=== PATIENT | female | born 1975 | race Caucasian/White ===

== ENCOUNTER 2018-02-14 20:02 | Inpatient (IN) ==
[2018-02-14 22:40] LABS: ABG Base Excess 0 mEq/L (-2 to 3); ABG HCO3 28 mEq/L (21-27); ABG Oxygen Saturation 99 % (95-98); ABG PCO2 63 mmHg (35-45); ABG PH 7.25 pH Units (7.32-7.45); ABG PO2 141 mmHg (85-104); ABG TCO2 30 mEq/L (20-26); Blood Gas Modality ASSIST CONTROL; Blood Gas PEEP 5 cm H2O; Blood Gas Respiration Rate 14; Blood Gas VT 400 cc
[2018-02-14] MEDS ORDERED: Artificial Tears SOLN 15 ML BOTTLE BOTH EYES PRN (22:47)
[2018-02-14] MEDS ORDERED: Naloxone 0.4 MG/ML INJ IVP PRN (22:47)
[2018-02-14] MEDS ORDERED: D5% in Water 1,000 ML IVC PRN (22:58)
[2018-02-14] MEDS ORDERED: Dextrose Gel 15 GM/37.5 ML TUBE PO PRN ×2 (22:58)
[2018-02-14] MEDS ORDERED: *HR* Dextrose 50 % in Water (Syg) 50 ML SYRINGE IVP PRN (22:58)
[2018-02-14 23:36] LABS: Basophils % 0.1 %; Hematocrit 34.4 % (35.3-44.9); Hemoglobin 11.6 g/dL (11.5-15.4); Immature Granulocytes % 0.4 % (0-4); Lymphocytes # 0.4 K/mcL (0.6-4.6); Lymphocytes % 3.4 %; Mean Corpuscular HGB Conc 33.7 g/dL (31.6-35.5); Mean Corpuscular Hemoglobin 29.9 pg (28.0-33.3); Mean Corpuscular Volume 88.7 fL (83.0-100.0); Mean Platelet Volume 10.2 fL (9.4-12.4); Monocytes # 0.2 K/mcL (0.0-1.3); Monocytes % 1.3 %; Neutrophils # 11.9 K/mcL (1.6-8.9); Platelet Count 148 K/mcL (140-400); Red Blood Count 3.88 M/mcL (3.82-4.97); Red Cell Distribution Width 12.8 % (11.5-14.5); Segmented Neutrophils % 94.8 %
[2018-02-14] MEDS: Insulin LISPRO 300 UNITS/3 ML VIAL SQ SCH (23:36)
--- NOTE | 2018-02-14 23:39 | Internal Med History&Physical ---
<PritiSilverio chung - Last Filed: 02/14/18 23:29> Date of Encounter: 02/14/18 Time of Encounter: 23:29 Internal Medicine - H&P: HPI Chief complaint: Lip swelling Admitted From: Emergency Dept Plans for Post Hospital Care: Transfer Other History of present illness: Ms. Owen is a 42 year old female with history of IV drug abuse, possible hepatitis C who presents with swelling of the lips and tongue. Patient is currently intubated sedated so history is obtained from the rehabilitation facility employee and from the medical record. Apparently several days ago the patient developed a "pimple" in her right naris and was picking at it. Yesterday she developed swelling on the left side of her face adjacent to her lips. Apparently there was no erythema or induration noted. This persisted today so the patient was taken to the urgent care where she was diagnosed with impetigo and prescribed amoxicillin. The patient took a dose of amoxicillin and up early her swelling of her lips and tongue rapidly progressed. She then presented to the emergency department where she was intubated for airway protection. Per the report there was minimal edema noted during intubation. Patient arrived to the intensive care unit in stable condition. In discussion with the rehabilitation facility employee the patient has been undergoing treatment for heroin addiction and has been staying at a facility for the past 43 days. She has been doing well with her treatment. She said several passes has been tested for drugs of abuse many times and has remained clean. Per the employee the patient has a history of hepatitis C but does not have a history of HIV. Patient started Lamictal and risperidone approximately a week ago. She takes Vivatrol injections to help with her addiction, it is unknown when her last injection was. Her only other medication is omeprazole. Past Med Surg Social Fam HX - Past Medical History Medical history: no medical history, hepatitis Additional medical history: Hep C, restless leg syndrome, chronic back pain Psychiatric history: anxiety, bipolar - Past Surgical History Surgical History: non-contributory - Social History Smoking Status: Never smoker Smokeless Tobacco Status: No Alcohol use: none Drug use: marijuana, IV Drug Use, prescription drug abuse Internal Medicine - H&P: Meds Amoxicillin 500 mg PO BID 10 Days #20 tablet 02/14/18 [Rx] Omeprazole [PriLOSEC] 40 mg PO DAILY 02/14/18 [History] lamoTRIgine [Lamictal] 25 mg PO BID 02/14/18 [History] risperiDONE [Risperdal] 1 mg PO DAILY 02/14/18 [History] 3 Allergy/AdvReac Type Severity Reaction Status Date / Time No Known Allergies Allergy Verified 02/14/18 21:33 ROS unobtainable: due to endotracheal tube All Systems PM: A 10-system review of systems was performed and is negative for pertinent findings except as documented above in the HPI. - Constitutional Vitals: Temp Pulse Resp BP Pulse Ox 98.4 F 114 14 114/98 97 02/14/18 22:27 02/14/18 22:27 02/14/18 22:27 02/14/18 22:27 02/14/18 22:27 Exam: Intubated and sedated. No acute distress. - Head Head exam: Present: atraumatic, normal inspection, normocephalic - Eye Eye exam: Present: EOMI, PERRL. Absent: periorbital swelling - ENT ENT exam: Present: mucous membranes moist Additional comments: Upper lip and tongue swelling noted. Small papule noted in the right naris with mild erythema. No active drainage. No other erythema or induration or discrete areas of fluctuance noted. Poor dentition is noted. - Neck Neck exam general surgery: Present: full ROM, supple, trachea midline. Absent: nuchal rigidity - Respiratory Respiratory exam: Present: wheezes (Mild bibasilar end expiratory wheezes). Absent: rales, respiratory distress, rhonchi, tachypnea - Cardiovascular Cardiovascular exam: Present: RRR. Absent: diastolic murmur, irregular rhythm, systolic murmur, tachycardia - GI/Abdominal GI/Abdominal exam: Present: normal bowel sounds, soft. Absent: distended, tenderness - Extremities Exam Extremities exam: Present: warm. Absent: pedal edema, tenderness - Neurological Exam Neurological exam: Absent: no focal deficits Additional comments: Patient moves all 4 extremities spontaneously. No focal deficits. - Psychiatric Additional comments: Unable to assess as patient is currently sedated. - Skin Skin exam: Absent: petechiae, rash, urticaria Additional comments: Small papule noted to right naris as discussed above. Internal Med - H&P Results - ABG Interpretation ABG results: 02/14/18 22:35 ABG pH 7.25 L ABG pCO2 63 H ABG pO2 141 H ABG HCO3 28 H ABG Total CO2 30 H ABG O2 Saturation 99 H ABG Base Excess 0 - Impressions ITS Impressions KUB X-Ray 02/14/18 22:44 IMPRESSION: Esophagogastric tube tip terminates over the expected location of the pylorus/1st portion of the duodenum. D/ / Alexis Morillo / Alexis Morillo Interpreting Provider: Alexis Morillo - Assessment and plan (1) Angioedema Current Visit: No Status: Acute Assessment and plan: Etiology unclear although possibly related to amoxicillin. Patient has no known drug allergies and apparently has taken amoxicillin in the past but we are unable to confirm this with the patient. Lamictal and risperidone are also possible causes but appear to be less likely at this time given the timeline. Patient continues to have perioral swelling and tongue swelling but minimal edema was noted during intubation. Patient currently intubated for airway protection. Continue sedation with propofol, we will plan to switch to Precedex and evaluate for spontaneous awake trial/spontaneous breathing trial in the morning. We will complete workup with ESR, CRP, C4. We will treat with methylprednisolone 40 mg IV every 8, Benadryl 50 mg every 6, famotidine 20 mg every 12. Qualifiers: Encounter type: initial encounter Qualified Code(s): T78.3XXA - Angioneurotic edema, initial encounter (2) Hepatitis C Current Visit: Yes Status: Suspected Assessment and plan: Her rehabilitation facility operations manager patient has a hepatitis C. We have no objective testing of this. Will order hepatitis panel. Hepatic function function panel pending as well. Qualifiers: Viral hepatitis chronicity: unspecified Hepatic coma status: without hepatic coma Qualified Code(s): B19.20 - Unspecified viral hepatitis C without hepatic coma (3) History of intravenous drug abuse Current Visit: Yes Status: Acute (4) GERD (gastroesophageal reflux disease) Current Visit: Yes Status: Acute Assessment and plan: Patient takes omeprazole home. We will use famotidine for GI prophylaxis as well as treatment of angioedema as discussed above. Qualifiers: Esophagitis presence: esophagitis presence not specified Qualified Code(s) : K21.9 - Gastro-esophageal reflux disease without esophagitis (5) DVT prophylaxis Current Visit: Yes Status: Acute Assessment and plan: Lovenox 40 mg subcutaneous daily (6) Psychiatric disorder Current Visit: Yes Status: Acute Assessment and plan: Unknown diagnosis although patient takes Lamictal and rispiradone. We will attempt to obtain records. Hold these medications for now as they could be contributing the patient's angioedema as discussed above. - Time Spent With Patient Total time spent is greater than 50% in coordination of care (as documented) at patient's floor/unit and/or counseling patient: <Radames Echavarriatony - Last Filed: 02/15/18 00:01> Date of Encounter: 02/15/18 Internal Medicine - H&P: HPI History of present illness: Ms. Owen is a 42 year old female All Systems PM: A 10-system review of systems was performed and is negative for pertinent findings except as documented above in the HPI. - Constitutional Vitals: Temp Pulse Resp BP Pulse Ox 98.4 F 114 14 114/98 97 02/14/18 22:27 02/14/18 22:27 02/14/18 22:27 02/14/18 22:27 02/14/18 22:27 Internal Med - H&P Results - Labs CBC & Chem 7: 02/14/18 23:04 Labs: Short CBC 02/14/18 Range/Units 23:04 WBC 12.6 H (4.3-11.1) K/mcL Hgb 11.6 (11.5-15.4) g/dL Hct 34.4 L (35.3-44.9) % Plt Count 148 (140-400) K/mcL Neutrophils # 11.9 H (1.6-8.9) K/mcL - ABG Interpretation ABG results: 02/14/18 22:35 ABG pH 7.25 L ABG pCO2 63 H ABG pO2 141 H ABG HCO3 28 H ABG Total CO2 30 H ABG O2 Saturation 99 H ABG Base Excess 0 - Impressions ITS Impressions KUB X-Ray 02/14/18 22:44 IMPRESSION: Esophagogastric tube tip terminates over the expected location of the pylorus/1st portion of the duodenum. D/ / Alexis Morillo / Alexis Morillo Interpreting Provider: Alexis Morillo - Assessment and plan (1) Angioedema Current Visit: No Status: Acute Qualifiers: Encounter type: initial encounter Qualified Code(s): T78.3XXA - Angioneurotic edema, initial encounter (2) Hepatitis C Current Visit: Yes Status: Suspected Qualifiers: Viral hepatitis chronicity: unspecified Hepatic coma status: without hepatic coma Qualified Code(s): B19.20 - Unspecified viral hepatitis C without hepatic coma (3) History of intravenous drug abuse Current Visit: Yes Status: Acute (4) DVT prophylaxis Current Visit: Yes Status: Acute (5) GERD (gastroesophageal reflux disease) Current Visit: Yes Status: Acute Qualifiers: Esophagitis presence: esophagitis presence not specified Qualified Code(s) : K21.9 - Gastro-esophageal reflux disease without esophagitis (6) Psychiatric disorder Current Visit: Yes Status: Acute - Time Spent With Patient Total time spent is greater than 50% in coordination of care (as documented) at patient's floor/unit and/or counseling patient: - Attending Attestation Patient seen on 02/14/18. History obtained from chart review as patient is intubated: Alayna Owen is a 42 year old woman with a history of illicit substance use (in recovery) who presented to [facility] urgent care earlier this morning with the complaint of dental pain for 2 days and localized facial swelling. She was given the diagnosis of a dental abscess and Rx amoxicillin. She took one tablet at home and came back to the ER with upper lip swelling and throat tightness. She stated that although she had swelling earlier in the morning, it dramatically became worse and felt like her throat was closing up. She was intubated for airway protection for possible compromise. Of note, the patient was started on lamotrigine and risperidone only 1 week ago for psychotic d/o NOS. On arrival here the patient is hemodynamically stable. Physical exam remarkable for well-developed white female sedated to RASS -1, <1cm sized red pimple in right nare, upper lip swelling with no inflammatory changes. No signs of jugular thrombophlebitis. Chest auscultation clear. Abdomen soft and no apparent tenderness on palpation. No peripheral edema. Pulses present and synchronic. Suspected angioedema secondary to penicillin antibiotic? Compounded by the fact that she had swelling prior to taking the amoxicillin however it seems to have dramatically worsened in just a few hours. She also recently started a neuroleptic and anticonvulsant a week ago which can also cause allergic reactions even within this time frame. For now she does not demonstrate signs of anaphylaxis warranting epinephrine. Although possible, seems less likely cellulitis associated with the small intranasal abscess given the lack of inflammatory finding around the lip and the report of her throat closing which should not be the case. Will observe her overnight on mechanical ventilation, light sedation and wean as per protocol in the morning. Anti-H1 & H2 indicated. Should have a short course of steroids. Hold all home medications. List penicillin as a potential allergy. No systemic antimicrobials for now. Obtain UDS given hx of substance use disorder. Obtain MRSA screen of her nares and start topical mupirocin ointment. DVT prophylaxis with heparin subcutaneous. CCT 45 mins.
[2018-02-14 23:40] LABS: Prothrombin Time 11.2 Seconds (9.4-12.1)
[2018-02-14 23:41] LABS: Estimated Average Glucose 91 mg/dl; Hemoglobin A1C 4.8 %
[2018-02-14] MEDS: MethylPREDNISolone 40 MG/ML VIAL IVP SCH (23:45)
[2018-02-14] MEDS: Artificial Tears SOLN 15 ML BOTTLE BOTH EYES SCH (23:50)
[2018-02-15] MEDS ORDERED: methylPREDNISolone 125 MG/2 ML VIAL IVP SCH
[2018-02-15 00:01] LABS: Alanine Aminotransferase 13 Units/L (7-52); Albumin/Globulin Ratio 1.5 (1.1-2.2); Alkaline Phosphatase 44 Units/L (34-104); Aspartate Amino Transferase 16 Units/L (13-39); BUN/Creatinine Ratio 28 (6-26); Bilirubin,Direct 0.1 mg/dL (0.0-0.2); Bilirubin,Indirect 0.3 mg/dL (0.0-1.2); Bilirubin,Total 0.4 mg/dL (0.3-1.0); Blood Urea Nitrogen 20 mg/dL (6-20); Calcium 8.8 mg/dL (8.6-10.3); Carbon Dioxide 24 mEq/L (23-29); Chloride 105 mEq/L (98-107); Globulin 2.6 g/dL (2.4-3.5); Glucose 141 mg/dL (70-105); Magnesium 1.7 mg/dL (1.6-2.6); Osmolality,Calculated 287 (280-300); Potassium 4.4 mEq/L (3.5-5.1); Sodium 136 mEq/L (136-145); Total Protein 6.6 g/dL (6.4-8.9); eGFR For Non-African Americans > 60 (> 60)
[2018-02-15 00:46] LABS: Hepatitis B Surface Antigen Nonreactive (Nonreactive)
[2018-02-15 01:59] LABS: Hepatitis A Antibody IgM Nonreactive (Nonreactive); Hepatitis B Core IgM Nonreactive (Nonreactive)
[2018-02-15 03:23] LABS: Hepatitis C Virus Antibody Reactive (Nonreactive)
[2018-02-15 04:19] LABS: Hematocrit 32.8 % (35.3-44.9); Hemoglobin 11.1 g/dL (11.5-15.4); Immature Granulocytes % 0.5 % (0-4); Lymphocytes # 0.6 K/mcL (0.6-4.6); Lymphocytes % 5.3 %; Mean Corpuscular HGB Conc 33.8 g/dL (31.6-35.5); Mean Corpuscular Volume 88.6 fL (83.0-100.0); Mean Platelet Volume 10.3 fL (9.4-12.4); Monocytes # 0.1 K/mcL (0.0-1.3); Neutrophils # 11.2 K/mcL (1.6-8.9); Platelet Count 139 K/mcL (140-400); Red Cell Distribution Width 12.8 % (11.5-14.5); Segmented Neutrophils % 93.2 %
[2018-02-15 04:26] LABS: BUN/Creatinine Ratio 23 (6-26); Blood Urea Nitrogen 18 mg/dL (6-20); Calcium 8.9 mg/dL (8.6-10.3); Carbon Dioxide 23 mEq/L (23-29); Chloride 109 mEq/L (98-107); Glucose 156 mg/dL (70-105); Magnesium 1.8 mg/dL (1.6-2.6); Osmolality,Calculated 291 (280-300); Potassium 4.5 mEq/L (3.5-5.1); Sodium 138 mEq/L (136-145); eGFR For Non-African Americans > 60 (> 60)
[2018-02-15 05:26] LABS: ABG Base Excess 0 mEq/L (-2 to 3); ABG HCO3 26 mEq/L (21-27); ABG Oxygen Saturation 98 % (95-98); ABG PCO2 46 mmHg (35-45); ABG PH 7.37 pH Units (7.32-7.45); ABG PO2 114 mmHg (85-104); ABG TCO2 28 mEq/L (20-26); Blood Gas Modality ASSIST CONTROL; Blood Gas PEEP 5 cm H2O; Blood Gas Respiration Rate 16; Blood Gas VT 400 cc
[2018-02-15] MEDS ORDERED: Dexmedetomidine HCl 400 MCG/100 ML MLS IVC SCH (05:45)
[2018-02-15] MEDS ORDERED: Famotidine 20 MG/2 ML VIAL IVP SCH (06:00)
[2018-02-15] MEDS ORDERED: *HR* Enoxaparin 40 MG/0.4 ML SYRINGE SQ SCH (06:00)
[2018-02-15] MEDS: Artificial Tears SOLN 15 ML BOTTLE BOTH EYES SCH ×2 (06:23→08:59)
[2018-02-15] MEDS ORDERED: Ketorolac 30 MG/ML VIAL IVP ONE (06:41)
[2018-02-15] MEDS: Insulin LISPRO 300 UNITS/3 ML VIAL SQ SCH ×3 (06:41→17:30)
[2018-02-15] MEDS: MethylPREDNISolone 40 MG/ML VIAL IVP SCH ×2 (07:47→16:04)
[2018-02-15] MEDS ORDERED: Chlorhexidine Rinse 15 ML MOUTHWASH MM SCH (09:00)
[2018-02-15] MEDS ORDERED: Naloxone 0.4 MG/ML INJ IVP PRN (09:23)
[2018-02-15] MEDS: Ketorolac 30 MG/ML VIAL IVP PRN ×2 (14:50→21:10)
--- NOTE | 2018-02-15 17:04 | Internal Med Progress Note ---
Hospitalist Progress Note - Encounter Date of Encounter: 02/15/18 Time of Encounter: 09:00 - Subjective Interval History: Pt still has left upper lip swelling, speech is not clear. C/O mild to moderate teeth pain, left check swelling. No drooling, difficult swallowing, difficult breathing. - Exam Vitals: Temp Pulse Resp BP Pulse Ox 98.7 F 85 14 122/71 98 02/15/18 15:00 02/15/18 16:00 02/15/18 16:00 02/15/18 16:00 02/15/18 16:00 Exam: Pt is AAO x 3, in NAD HEENT: NC/AT, left upper lip swelling, left facial swelling Neck: Supple, no JVD Lungs: CTA b/l Heart: S1S2, RRR Abd: Soft, NT Ext: ROM WNL, no pedal edema Neuro: no focal deficit - Assessment and Plan (1) Angioedema Current Visit: No Status: Inactive Assessment and Plan: Suspect angioedema with lip swelling. However, facial abscess is not fully ruled out - Cont steroid/H1, H2 antagonists - Facial CT (2) Hepatitis C Current Visit: Yes Status: Suspected Assessment and Plan: Hep C positive, Liver enzyme wnl. (3) History of intravenous drug abuse Current Visit: Yes Status: Acute (4) DVT prophylaxis Current Visit: Yes Status: Acute Assessment and Plan: Lovenox 40 mg subcutaneous daily (5) GERD (gastroesophageal reflux disease) Current Visit: Yes Status: Acute Assessment and Plan: Patient takes omeprazole home. We will use famotidine for GI prophylaxis as well as treatment of angioedema as discussed above. (6) Psychiatric disorder Current Visit: Yes Status: Acute Assessment and Plan: Unknown diagnosis although patient takes Lamictal and rispiradone. We will attempt to obtain records. Hold these medications for now as they could be contributing the patient's angioedema as discussed above. DVT Prophylaxis: Lovenox SC - Time Spent with Patient Total time spent is greater than 50% in coordination of care (as documented) at patient's floor/unit and/or counseling patient: 30 min 25 - 35 minutes Plan of Care Discussed with: patient Internal Medicine: Result - Labs CBC & Chem 7: 02/15/18 03:54 02/15/18 03:54 Labs: Short CBC 02/14/18 02/15/18 Range/Units 23:04 03:54 WBC 12.6 H 12.0 H (4.3-11.1) K/mcL Hgb 11.6 11.1 L (11.5-15.4) g/dL Hct 34.4 L 32.8 L (35.3-44.9) % Plt Count 148 139 L (140-400) K/mcL Neutrophils # 11.9 H 11.2 H (1.6-8.9) K/mcL BMP 02/14/18 02/15/18 23:04 03:54 Sodium 136 138 Potassium 4.4 4.5 Chloride 105 109 H Carbon Dioxide 24 23 BUN 20 18 Creatinine 0.72 0.78 Glucose 141 H 156 H Calcium 8.8 8.9 Liver Function 02/14/18 Range/Units 23:04 Total Bilirubin 0.4 (0.3-1.0) mg/dL Direct Bilirubin 0.1 (0.0-0.2) mg/dL AST 16 (13-39) Units/L ALT 13 (7-52) Units/L Alkaline Phosphatase 44 (34-104) Units/L Albumin 4.0 (3.5-5.7) g/dL - ABG Interpretation ABG results: ABG ABG pH 7.37 pH Units (7.32-7.45) 02/15/18 05:20 ABG pCO2 46 mmHg (35-45) H 02/15/18 05:20 ABG pO2 114 mmHg (85-104) H 02/15/18 05:20 ABG O2 Saturation 98 % (95-98) 02/15/18 05:20 PT/INR, D-dimer PT 11.2 Seconds (9.4-12.1) 02/14/18 23:04 - Impressions Impressions KUB X-Ray 02/14/18 22:44 IMPRESSION: Esophagogastric tube tip terminates over the expected location of the pylorus/1st portion of the duodenum. D/ / Alexis Morillo / Alexis Morillo Interpreting Provider: Alexis Morillo Consult Discharge Plan - Plan Referrals: NONE,PCP [Primary Care Provider] - (1) Angioedema Qualifiers: Encounter type: initial encounter Qualified Code(s): T78.3XXA - Angioneurotic edema, initial encounter (2) Hepatitis C Qualifiers: Viral hepatitis chronicity: unspecified Hepatic coma status: without hepatic coma Qualified Code(s): B19.20 - Unspecified viral hepatitis C without hepatic coma (5) GERD (gastroesophageal reflux disease) Qualifiers: Esophagitis presence: esophagitis presence not specified Qualified Code(s): K21.9 - Gastro-esophageal reflux disease without esophagitis
[2018-02-15] MEDS: Famotidine 20 MG/2 ML VIAL IVP SCH (17:29)
--- NOTE | 2018-02-15 19:17 | Event Note ---
Date of Encounter: 02/15/18 Time of Encounter: 18:30 CT facial shows no obvious abscess. However, pt report fever at home, she was found boil in nostril and MRSA screen positive. Will start po abx clindamycin, add probiotics to prevent C Diff. Blood cx drawn by Tammy, will f/u result.
[2018-02-15] MEDS ORDERED: traZODone 50 MG TABLET PO SCH (21:00)
[2018-02-16] MEDS: MethylPREDNISolone 40 MG/ML VIAL IVP SCH ×2 (00:01→07:51)
[2018-02-16] MEDS: Insulin LISPRO 300 UNITS/3 ML VIAL SQ SCH ×4 (00:02→18:24)
[2018-02-16] MEDS: Ketorolac 30 MG/ML VIAL IVP PRN ×2 (03:30→19:43)
[2018-02-16 03:32] LABS: Hematocrit 29.4 % (35.3-44.9); Hemoglobin 9.9 g/dL (11.5-15.4); Immature Granulocytes % 0.7 % (0-4); Lymphocytes # 0.7 K/mcL (0.6-4.6); Lymphocytes % 5.8 %; Mean Corpuscular HGB Conc 33.7 g/dL (31.6-35.5); Mean Corpuscular Hemoglobin 29.6 pg (28.0-33.3); Mean Corpuscular Volume 87.8 fL (83.0-100.0); Mean Platelet Volume 10.4 fL (9.4-12.4); Monocytes # 0.3 K/mcL (0.0-1.3); Monocytes % 2.8 %; Neutrophils # 10.9 K/mcL (1.6-8.9); Platelet Count 127 K/mcL (140-400); Red Blood Count 3.35 M/mcL (3.82-4.97); Red Cell Distribution Width 12.8 % (11.5-14.5); Segmented Neutrophils % 90.7 %
[2018-02-16 03:46] LABS: BUN/Creatinine Ratio 34 (6-26); Blood Urea Nitrogen 25 mg/dL (6-20); Calcium 8.7 mg/dL (8.6-10.3); Carbon Dioxide 24 mEq/L (23-29); Chloride 109 mEq/L (98-107); Glucose 139 mg/dL (70-105); Osmolality,Calculated 293 (280-300); Potassium 4.8 mEq/L (3.5-5.1); Sodium 138 mEq/L (136-145); eGFR For Non-African Americans > 60 (> 60)
[2018-02-16] MEDS: *HR* Enoxaparin 40 MG/0.4 ML SYRINGE SQ SCH (06:23)
[2018-02-16] MEDS: Lactobacillus 1 EACH CAP.SPRINK PO SCH (07:51)
[2018-02-16] MEDS: Famotidine 20 MG/2 ML VIAL IVP SCH (09:55)
[2018-02-16] MEDS: *HR* HYDROcodone/Acet 5/325 mg TABLET PO PRN ×2 (12:07→18:21)
[2018-02-16] MEDS: OXYCODONE Oral CONC 10 MG/0.5 ML ORAL.SYG SL PRN (13:18)
[2018-02-16] MEDS ORDERED: Clindamycin 600 MG/50 ML 600 MG/50 ML IV.SOLN IVPB SCH (16:00)
--- NOTE | 2018-02-16 16:13 | Internal Med Progress Note ---
<Guanako Silverio - Last Filed: 02/16/18 17:20> Hospitalist Progress Note - Encounter Date of Encounter: 02/16/18 - Subjective Interval History: Patient was seen this morning, says pain was not decreased taking toradol. She noticed that the swelling also had increased into her right cheek overnight. Patient denies drooling, spitting blood, difficulty breathing, and swallowing. - Exam Vitals: Temp Pulse Resp BP Pulse Ox 98.4 F 68 15 131/76 97 02/16/18 11:26 02/16/18 11:26 02/16/18 11:26 02/16/18 11:02/16/18 11:26 Exam: Gen: patient alert and oriented, NAD CV: RRR, no rubs or clicks Resp: CTAB no rhonchi or rales noted Abd: normal bowel sounds in 4 quadrants - Assessment and Plan (1) Hepatitis C Current Visit: Yes Status: Suspected Assessment and Plan: Liver enzymes are WNL Hep C positive (2) History of intravenous drug abuse Current Visit: Yes Status: Acute (3) DVT prophylaxis Current Visit: Yes Status: Acute Assessment and Plan: Lovenox 40 mg subcutaneous daily (4) GERD (gastroesophageal reflux disease) Current Visit: Yes Status: Acute Assessment and Plan: Patient takes omeprazole home. We will use famotidine for GI prophylaxis as well as treatment of angioedema as discussed above. (5) Psychiatric disorder Current Visit: Yes Status: Acute Assessment and Plan: Patient has anxiety and bipolar disorder medications currently being as may be part of problem. (6) Angioedema Current Visit: Yes Status: Acute Assessment and Plan: Angioedema is less likely as an abscess currently seems more suspicious - Time Spent with Patient Total time spent is greater than 50% in coordination of care (as documented) at patient's floor/unit and/or counseling patient: Internal Medicine: Result - Labs CBC & Chem 7: 02/16/18 03:15 02/16/18 03:15 Labs: Short CBC 02/16/18 Range/Units 03:15 WBC 12.0 H (4.3-11.1) K/mcL Hgb 9.9 L (11.5-15.4) g/dL Hct 29.4 L (35.3-44.9) % Plt Count 127 L (140-400) K/mcL Neutrophils # 10.9 H (1.6-8.9) K/mcL BMP 02/16/18 03:15 Sodium 138 Potassium 4.8 Chloride 109 H Carbon Dioxide 24 BUN 25 H Creatinine 0.74 Glucose 139 H Calcium 8.7 - ABG Interpretation ABG results: ABG ABG pH 7.37 pH Units (7.32-7.45) 02/15/18 05:20 ABG pCO2 46 mmHg (35-45) H 02/15/18 05:20 ABG pO2 114 mmHg (85-104) H 02/15/18 05:20 ABG O2 Saturation 98 % (95-98) 02/15/18 05:20 PT/INR, D-dimer PT 11.2 Seconds (9.4-12.1) 02/14/18 23:04 - Impressions Impressions Face CT 02/15/18 16:52 IMPRESSION: Notable swelling over the philtrum of the upper lip is identified. There is no organized fluid collection. D/ / Srinivasan Lyons / Srinivasan Lyons Interpreting Provider: Srinivasan Lyons Consult Discharge Plan - Plan Referrals: NONE,PCP [Primary Care Provider] - <Vinnie Gilmore - Last Filed: 02/16/18 17:45> Hospitalist Progress Note - Encounter Date of Encounter: 02/16/18 Time of Encounter: 17:26 - Exam Vitals: Temp Pulse Resp BP Pulse Ox 98.4 F 68 15 131/76 97 02/16/18 11:26 02/16/18 11:26 02/16/18 11:26 02/16/18 11:26 02/16/18 11:26 Exam: Gen.: Vitals noted. No acute distress. AAOx3, Mildly uncomfortable secondary to pain. HEENT: PERRL/EOMI, oropharynx clear, Normocephalic, atraumatic, MMM, Left sided facial swelling extending to zygomatic arch to left upper lip. No obvious airway obstruction, no bilateral involvement. Swelling to tender to palpation but no erythema or warmth. Neck: Supple. No adenopathy. No thyroid nodules. Cardiac: RRR, no murmur, +S1/S2, No BLE edema Pulmonary: CTA bilaterally, no wheezes, rales or rhonchi, equal chest expansion , unlabored breathing Abdomen: soft, nontender, BS noted, no guarding, no palpable HSM Skin: warm and dry, no visible lesions. Neuro: A&Ox3, moves all extremities, no focal deficits, sensation intact, CN II- X grossly intact. Psych: Appropriate mood and behavior, AOx3 - Assessment and Plan (1) Angioedema Current Visit: Yes Status: Suspected Assessment and Plan: - Patient presented with facial swelling and was intubated and [facility] emergency department secondary to concern for airway obstruction - She has already been extubated and is currently tolerating room air without complaints - Patient does report medication change starting Risperdal approximately 1 week ago. - She received IV steroids, Pepcid, Benadryl with no changes in her symptoms. - CT of the face demonstrated soft tissue swelling of the upper lip without obvious evidence of abscess or airway obstruction - At this time, suspicion is higher for soft tissue infection of the face and less likely angioedema given that her symptoms are not improving with anti- inflammatory medications. - Vitals unremarkable, laboratory results significant for leukocytosis of 12 with left shift - MRSA nasal swab positive, we will continue clindamycin for coverage Plan - We will continue antibiotics of clindamycin and change to IV - Will discontinue steroids as there is less suspicion of angioedema vs infection. - We will consult ENT for further evaluation - Continue to monitor respiratory status as well as labs given leukocytosis of 12 (2) Facial infection Current Visit: Yes Status: Acute Assessment and Plan: - As above for angioedema - Higher suspicion for infection vs edema at this time given no improvement with steroids and anti inflammatories - Leukocytosis of 12 stable from previous of 11, will continue to monitor - Has been on clindamycin PO, will change to IV - Consult ENT, appreciate their recommendations (3) Hepatitis C Current Visit: Yes Status: Suspected Assessment and Plan: Positive hepatitis C Ab Likely secondary to history of IV drug use Liver enzymes within normal limits Continue management as outpatient (4) History of intravenous drug abuse Current Visit: Yes Status: Acute Assessment and Plan: Patient states she has been clean for 60 days (5) GERD (gastroesophageal reflux disease) Current Visit: Yes Status: Acute (6) Psychiatric disorder Current Visit: Yes Status: Acute Assessment and Plan: Currently well controlled and patient is having minimal symptoms Patient was recently started on risperidone which has been stopped due to concerns for angioedema secondary to medication allergy We will continue to monitor and continue other home medications (7) DVT prophylaxis Current Visit: Yes Status: Acute - Time Spent with Patient Total time spent is greater than 50% in coordination of care (as documented) at patient's floor/unit and/or counseling patient: Internal Medicine: Result - Labs CBC & Chem 7: 02/16/18 03:15 02/16/18 03:15 Labs: Short CBC 02/16/18 Range/Units 03:15 WBC 12.0 H (4.3-11.1) K/mcL Hgb 9.9 L (11.5-15.4) g/dL Hct 29.4 L (35.3-44.9) % Plt Count 127 L (140-400) K/mcL Neutrophils # 10.9 H (1.6-8.9) K/mcL BMP 02/16/18 03:15 Sodium 138 Potassium 4.8 Chloride 109 H Carbon Dioxide 24 BUN 25 H Creatinine 0.74 Glucose 139 H Calcium 8.7 - ABG Interpretation ABG results: ABG ABG pH 7.37 pH Units (7.32-7.45) 02/15/18 05:20 ABG pCO2 46 mmHg (35-45) H 02/15/18 05:20 ABG pO2 114 mmHg (85-104) H 02/15/18 05:20 ABG O2 Saturation 98 % (95-98) 02/15/18 05:20 PT/INR, D-dimer PT 11.2 Seconds (9.4-12.1) 02/14/18 23:04 - Impressions Impressions Face CT 02/15/18 16:52 IMPRESSION: Notable swelling over the philtrum of the upper lip is identified. There is no organized fluid collection. D/ / Srinivasan Lyons / Srinivasan Lyons Interpreting Provider: Srinivasan Lyons <Guanako Silverio - Last Filed: 02/16/18 17:20> (1) Hepatitis C Qualifiers: Viral hepatitis chronicity: unspecified Hepatic coma status: without hepatic coma Qualified Code(s): B19.20 - Unspecified viral hepatitis C without hepatic coma (4) GERD (gastroesophageal reflux disease) Qualifiers: Esophagitis presence: esophagitis presence not specified Qualified Code(s): K21.9 - Gastro-esophageal reflux disease without esophagitis <Vinnie Gilmore - Last Filed: 02/16/18 17:45> (1) Angioedema Qualifiers: Encounter type: initial encounter Qualified Code(s): T78.3XXA - Angioneurotic edema, initial encounter (3) Hepatitis C Qualifiers: Viral hepatitis chronicity: unspecified Hepatic coma status: without hepatic coma Qualified Code(s): B19.20 - Unspecified viral hepatitis C without hepatic coma (5) GERD (gastroesophageal reflux disease) Qualifiers: Esophagitis presence: esophagitis presence not specified Qualified Code(s): K21.9 - Gastro-esophageal reflux disease without esophagitis
--- NOTE | 2018-02-16 16:41 | ENT - Consult Note ---
Date of Encounter: 02/16/18 Time of Encounter: 16:31 Assessment and Plan (1) Abscess of lip Current Visit: Yes Status: Acute The patient's left upper lip swelling is a sequelae of the infection that started with the carbuncle in her right nasal vestibule and tracked inferiorly to the left upper lip. I do not feel that she had angioedema related to the change in her psychiatric medications but rather this is an infection which progressed and spread to her left upper lip. I have performed incision and drainage of the left upper lip abscess and right nasal vestibule abscess and have placed packing in the left upper lip abscess cavity and send the abscess fluid to the lab for aerobic/anaerobic culture and sensitivity.. would recommend: 1. broaden antibiotic coverage until culture and sensitivity results are available from the culture of the left upper lip abscess 2. remain on clear liquid diet for now. I will remove the upper lip packing tomorrow am and start patient on peridex mouthrinses to keep the incision site clean. will follow. discussed above with patient in detail. questions answered. discussed above with nursing staff and Dr. Vaughn. (2) Abscess, furuncle and carbuncle of nose Current Visit: Yes Status: Acute The patient's left upper lip swelling is a sequelae of the infection that started with the carbuncle in her right nasal vestibule and tracked inferiorly to the left upper lip. I do not feel that she had angioedema related to the change in her psychiatric medications but rather this is an infection which progressed and spread to her left upper lip. I have performed incision and drainage of the left upper lip abscess and right nasal vestibule abscess and have placed packing in the left upper lip abscess cavity and send the abscess fluid to the lab for aerobic/anaerobic culture and sensitivity.. would recommend: 1. broaden antibiotic coverage until culture and sensitivity results are available from the culture of the left upper lip abscess 2. remain on clear liquid diet for now. I will remove the upper lip packing tomorrow am and start patient on peridex mouthrinses to keep the incision site clean. will follow. discussed above with patient in detail. questions answered. discussed above with nursing staff and Dr. Vaughn History of Present Illness Consult date: 02/16/18 Reason for ENT Consult: other (left upper lip swelling) Requesting physician: Gertrudis Vaughn History of present illness: The patient is a 42 y.o. F with + Hepatitis C who complains of a pustule in her right lower nasal vestibule which she noticed about 7 days ago. She complains of pain in her right nose and she tried to open the pustule by squeezing it to get it to drain. After this, she noticed that her left upper lip started swelling and became more painful. She went to the immediate care and was treated with oral antibiotics. Her left upper lip swelling continued to get worse and she had more pain. She denies fever. She was transferred to the ER and CT face showed swelling in the left upper lip region. She was initially thought to have angioedema and was intubated for one day in the ICU. She then was extubated this am and her left upper lip swelling continues to progress and now the patient states that her left cheek is swollen and the pain is much worse. Past Med Surg Social Fam HX - Past Medical History Medical history: no medical history, hepatitis Additional medical history: Hep C, restless leg syndrome, chronic back pain Psychiatric history: anxiety, bipolar - Past Surgical History Surgical History: non-contributory - Social History Smoking Status: Never smoker Smokeless Tobacco Status: No Alcohol use: none Drug use: marijuana, IV Drug Use, prescription drug abuse Medications and Allergies Amoxicillin 500 mg PO BID 10 Days #20 tablet 02/14/18 [Rx] Omeprazole [PriLOSEC] 40 mg PO DAILY 02/14/18 [History] lamoTRIgine [Lamictal] 25 mg PO BID 02/14/18 [History] risperiDONE [Risperdal] 1 mg PO DAILY 02/14/18 [History] 3 Allergy/AdvReac Type Severity Reaction Status Date / Time No Known Allergies Allergy Verified 02/14/18 21:33 ENT - ROS All systems PM: reviewed and no additional remarkable complaints except as stated (patient is Hep C positive, IV drug abuse, schizophrenia/bipolar) ENT Exam Initial Vital Signs Temp Pulse Resp BP Pulse Ox 98.4 F 114 22 108/67 100 02/14/18 22:13 02/14/18 22:13 02/14/18 22:13 02/14/18 22:13 02/14/18 22:13 - Additional Findings Normocephlic/atraumatic Face: swelling and induration of left upper lip with swelling extending into the left cheek. there is some erythema of the skin overlying the left upper lip and this area is fluctuant and very tender to palpation. ears: pinnas normal bilaterally, EACs are normal bilaterally, tympanic membranes are normal bilaterally. middle ear spaces are clear. nares: fluctuant 7 mm mass in the medial left nasal ala which has purulence coming from the ulceration in the center of the mass. this is very tender to palpation and the skin is very erythematous. The nasal dorsum and ala are normal bilaterally. The right nasal cavity is otherwise normal with no mucosal lesions. the left nasal cavity, ala, and vestibule are normal bilaterally with no mucosal lesions. op/oc - the left upper lip is indurated from midline and extending laterally to the left check. The right upper lip is normal. The mucosa of the left upper lip is erythematous and there is a 2 cm fluctuant mass present in the left upper lip which is very tender to palpation. the gingival sulcus on the left is present and the gums are otherwise normal. The dentition is poor. the hard and soft palate are normal. the posterior pharynx is normal. the floor of mouth is normal. the tongue is normal. the lower lip is normal. neck - supple, no lymphadenopathy. thyroid is not enlarged and there are no palpable masses. the trachea is midline. Procedure note; After informed consent is signed, the right nasal vestibule and left upper lip were anesthetized with 6 cc total of 1% lidocaine with epinephrine. Then, using a #15 blade, the right nasal vestibule abscess was opened and there was thick purulence that was expressed from the abscess cavity. There was a lot of necrotic tissue also in the abscess. the wound was explored with a curved hemostat and there was a tract from the right nasal abscess to the left upper lip abscess. Attention was turned to the left upper lip where a 1 cm incision was made in the upper lip mucosa over the abscess. thick purulence drained spontaneously from the abscess and was cultured. the remaining purulence was suctioned. the abscess cavity was explored with the curved hemostat forceps and the entire cavity was found to have no further purulence. The abscess cavity was irrigated with 60 cc normal saline. the abscess cavity was packed with 1" plain gauze. The patient was significantly improved and tolerated the procedure well. Exam Initial Vital Signs Temp Pulse Resp BP Pulse Ox 98.4 F 114 22 108/67 100 02/14/18 22:13 02/14/18 22:13 02/14/18 22:13 02/14/18 22:13 02/14/18 22:13 Results - Labs 02/16/18 03:15 02/16/18 03:15 Abnormal lab results WBC 12.0 K/mcL (4.3-11.1) H 02/16/18 03:15 RBC 3.35 M/mcL (3.82-4.97) L 02/16/18 03:15 Hgb 9.9 g/dL (11.5-15.4) L 02/16/18 03:15 Hct 29.4 % (35.3-44.9) L 02/16/18 03:15 Plt Count 127 K/mcL (140-400) L 02/16/18 03:15 Neutrophils # 10.9 K/mcL (1.6-8.9) H 02/16/18 03:15 ESR 32 mm/hr (0-15) H 02/14/18 23:04 ABG pCO2 46 mmHg (35-45) H 02/15/18 05:20 ABG pO2 114 mmHg (85-104) H 02/15/18 05:20 ABG Total CO2 28 mEq/L (20-26) H 02/15/18 05:20 Chloride 109 mEq/L (98-107) H 02/16/18 03:15 BUN 25 mg/dL (6-20) H 02/16/18 03:15 BUN/Creatinine Ratio 34 (6-26) H 02/16/18 03:15 Glucose 139 mg/dL (70-105) H 02/16/18 03:15 POC Glucose 178 mg/dL (70-99) H 02/16/18 00:00 C-Reactive Protein 37 mg/L (Less than 10) H 02/14/18 23:04 Nasal Screen MRSA (PCR) Positive (Negative) A 02/14/18 02:45 Hepatitis C Ab Screen Reactive (Nonreactive) H 02/14/18 23:04 Diabetes panel 02/16/18 Range/Units 03:15 Sodium 138 (136-145) mEq/L Potassium 4.8 (3.5-5.1) mEq/L Chloride 109 H (98-107) mEq/L Carbon Dioxide 24 (23-29) mEq/L BUN 25 H (6-20) mg/dL Creatinine 0.74 (0.60-1.20) mg/dL Glucose 139 H (70-105) mg/dL Calcium 8.7 (8.6-10.3) mg/dL Calcium panel 02/16/18 Range/Units 03:15 Calcium 8.7 (8.6-10.3) mg/dL Pituitary panel 02/16/18 Range/Units 03:15 Sodium 138 (136-145) mEq/L Potassium 4.8 (3.5-5.1) mEq/L Chloride 109 H (98-107) mEq/L Carbon Dioxide 24 (23-29) mEq/L BUN 25 H (6-20) mg/dL Creatinine 0.74 (0.60-1.20) mg/dL Glucose 139 H (70-105) mg/dL Calcium 8.7 (8.6-10.3) mg/dL Adrenal panel 02/16/18 Range/Units 03:15 Sodium 138 (136-145) mEq/L Potassium 4.8 (3.5-5.1) mEq/L Chloride 109 H (98-107) mEq/L Carbon Dioxide 24 (23-29) mEq/L BUN 25 H (6-20) mg/dL Creatinine 0.74 (0.60-1.20) mg/dL Glucose 139 H (70-105) mg/dL Calcium 8.7 (8.6-10.3) mg/dL All other labs normal. - Imaging Additional studies: CT face films reviewed - this CT was done without contrast but upon my personal review of the films, there is a loculated cavity of fluid in the left upper lip region with induration of the surrounding soft tissue. She also has some minimal left maxillary sinus mucosal thickening but no air fluid level. the other paranasal sinuses are normal. Consult Discharge Plan - Plan Referrals: NONE,PCP [Primary Care Provider] -
--- NOTE | 2018-02-16 17:33 | Event Note ---
Date of Encounter: 02/16/18 Time of Encounter: 10:00 I have seen and examined this pt independently. I have discussed with resident physician Dr Hanson and medical student regarding the management plan. Details please refer to the progress note. I personally talked to ENT consult Dr Robert, Pt has abscess which was drained by ENT. The lip edema is apparently caused by abscess, angioedema is ruled out. Change abx to vanco and zosyn iv per ENT recommendation. Wound culture send, will f/u results. D/C steroid, H1/H2 antagonists.
[2018-02-16] MEDS: traZODone 50 MG TABLET PO PRN (20:36)
[2018-02-16] MEDS: Piperacillin/Tazobactam 3.375 GM in 0.9 % Sodium Chloride Mini Bag 100 ML IVPB SCH (20:37)
[2018-02-17] MEDS: *HR* HYDROcodone/Acet 5/325 mg TABLET PO PRN ×4 (00:33→22:02)
[2018-02-17] MEDS: Insulin LISPRO 300 UNITS/3 ML VIAL SQ SCH ×2 (00:48→06:49)
[2018-02-17 03:35] LABS: Basophils % 0.1 %; Immature Granulocytes % 0.4 % (0-4); Lymphocytes # 1.4 K/mcL (0.6-4.6); Lymphocytes % 17.6 %; Mean Corpuscular HGB Conc 32.6 g/dL (31.6-35.5); Mean Corpuscular Hemoglobin 29.2 pg (28.0-33.3); Mean Corpuscular Volume 89.7 fL (83.0-100.0); Mean Platelet Volume 10.7 fL (9.4-12.4); Monocytes # 0.4 K/mcL (0.0-1.3); Monocytes % 5.5 %; Neutrophils # 6.2 K/mcL (1.6-8.9); Platelet Count 133 K/mcL (140-400); Red Blood Count 3.01 M/mcL (3.82-4.97); Red Cell Distribution Width 12.9 % (11.5-14.5); Segmented Neutrophils % 76.4 %
[2018-02-17 03:42] LABS: Hemoglobin 8.8 g/dL (11.5-15.4)
[2018-02-17 03:56] LABS: BUN/Creatinine Ratio 31 (6-26); Blood Urea Nitrogen 25 mg/dL (6-20); Calcium 8.3 mg/dL (8.6-10.3); Carbon Dioxide 26 mEq/L (23-29); Chloride 110 mEq/L (98-107); Glucose 106 mg/dL (70-105); Osmolality,Calculated 293 (280-300); Potassium 4.3 mEq/L (3.5-5.1); Sodium 139 mEq/L (136-145); eGFR For Non-African Americans > 60 (> 60)
[2018-02-17] MEDS: Piperacillin/Tazobactam 3.375 GM in 0.9 % Sodium Chloride Mini Bag 100 ML IVPB SCH ×3 (05:58→20:10)
[2018-02-17] MEDS: *HR* Enoxaparin 40 MG/0.4 ML SYRINGE SQ SCH (06:01)
[2018-02-17] MEDS: Ketorolac 30 MG/ML VIAL IVP PRN ×2 (06:07→22:02)
--- NOTE | 2018-02-17 08:43 | ENT - Progress Note ---
Date of Encounter: 02/17/18 Time of Encounter: 08:41 - Assessment and Plan (1) Abscess of lip Current Visit: Yes Status: Acute pt is s/p I&D of left upper lip abscess and right nasal furuncle - POD #1 - significantly improved today. WBC is down to 8.1. pt is feeling better with less pain. culture results still pending for sensitivities. pt on broad spectrum IV Abx (Vancomycin and Zosyn). pt states packing fell out yesterday. she does not need to have the packing replaced. wound appears clean and dry. recommend: 1. mupirocin ointment = apply to right nasal furuncle bid 2. peridex mouthrinse after every meal 3. can go to regular diet. 4. await C&S from culture to switch to po antibiotics. discussed with patient and nursing staff. questions answered. (2) Abscess, furuncle and carbuncle of nose Current Visit: Yes Status: Acute pt is s/p I&D of left upper lip abscess and right nasal furuncle - POD #1 - significantly improved today. WBC is down to 8.1. pt is feeling better with less pain. culture results still pending for sensitivities. pt on broad spectrum IV Abx (Vancomycin and Zosyn). pt states packing fell out yesterday. she does not need to have the packing replaced. wound appears clean and dry. recommend: 1. mupirocin ointment = apply to right nasal furuncle bid 2. peridex mouthrinse after every meal 3. can go to regular diet. 4. await C&S from culture to switch to po antibiotics. discussed with patient and nursing staff. questions answered. Subjective Patient reports: feels better (patient feeling much better, swelling of lower lip is decreased. still painful but able to eat.) Objective Initial Vital Signs Temp Pulse Resp BP Pulse Ox 98.4 F 114 22 108/67 100 02/14/18 22:13 02/14/18 22:13 02/14/18 22:13 02/14/18 22:13 02/14/18 22:13 - ENT Other - Labs 02/17/18 02:47 02/17/18 02:47 Diabetes panel 02/17/18 Range/Units 02:47 Sodium 139 (136-145) mEq/L Potassium 4.3 (3.5-5.1) mEq/L Chloride 110 H (98-107) mEq/L Carbon Dioxide 26 (23-29) mEq/L BUN 25 H (6-20) mg/dL Creatinine 0.80 (0.60-1.20) mg/dL Glucose 106 H (70-105) mg/dL Calcium 8.3 L (8.6-10.3) mg/dL Calcium panel 02/17/18 Range/Units 02:47 Calcium 8.3 L (8.6-10.3) mg/dL Pituitary panel 02/17/18 Range/Units 02:47 Sodium 139 (136-145) mEq/L Potassium 4.3 (3.5-5.1) mEq/L Chloride 110 H (98-107) mEq/L Carbon Dioxide 26 (23-29) mEq/L BUN 25 H (6-20) mg/dL Creatinine 0.80 (0.60-1.20) mg/dL Glucose 106 H (70-105) mg/dL Calcium 8.3 L (8.6-10.3) mg/dL Adrenal panel 02/17/18 Range/Units 02:47 Sodium 139 (136-145) mEq/L Potassium 4.3 (3.5-5.1) mEq/L Chloride 110 H (98-107) mEq/L Carbon Dioxide 26 (23-29) mEq/L BUN 25 H (6-20) mg/dL Creatinine 0.80 (0.60-1.20) mg/dL Glucose 106 H (70-105) mg/dL Calcium 8.3 L (8.6-10.3) mg/dL culture of lip abscess pending. gram stain shows bacteria. Consult Discharge Plan - Plan Referrals: NONE,PCP [Primary Care Provider] -
[2018-02-17] MEDS ORDERED: Chlorhexidine Rinse 15 ML MOUTHWASH MM SCH (09:00)
[2018-02-17] MEDS: Lactobacillus 1 EACH CAP.SPRINK PO SCH (09:11)
[2018-02-17 09:35] LABS: % Iron Saturation 9 % (15-50); Iron 35 mcg/dL (50-170); Transferrin 276 mg/dL (203-362)
[2018-02-17] MEDS ORDERED: lamoTRIgine 25 MG TABLET PO SCH (12:00)
--- NOTE | 2018-02-17 13:37 | Internal Med Progress Note ---
Hospitalist Progress Note - Encounter Date of Encounter: 02/17/18 Time of Encounter: 13:34 - Subjective Interval History: Patient was seen this morning, says pain has decreased with administration of [place]. She was in much better spirits after the incision and drainage from ENT from her right cheek overnight. She states that the swelling is better and has gone down and her pain has decreased from this also. Denies bleeding from incision site. Will continue to monitor closely. - Exam Vitals: Temp Pulse Resp BP Pulse Ox 98.1 F 76 16 94/61 97 02/17/18 11:23 02/17/18 11:23 02/17/18 11:23 02/17/18 11:23 02/17/18 11:23 Exam: Gen: patient AAO x 3, NAD appeared pleasant CV: RRR, no rubs or clicks Resp: CTAB no rhonchi or rales noted, not working to breathe Abd: normal bowel sounds in 4 quadrants, nontender HEENT: General appearance normocephalic, atraumatic swelling mildly improved, refused palpation, poor dentition, mmm Psych: pleasant demeanor, answered questions appropriately Neuro: EOMI, CN 9, 10 and 12 grossly intact - Assessment and Plan (1) Abscess Current Visit: Yes Status: Acute Assessment and Plan: Prior swelling clinically improving, CT scan showed soft tissue swelling without obvious abscess however IV contrast was not used ENT was consulted and found an abscess whereby an I&D was performed 02/16/18 Wound cultures were obtained, results are pending, blood cultures are negative preliminary results for wound culture show gram positive rods WBC is downtrending from 17 to 8.1 Patient has been notably afebrile and has no tachycardia IV steroids, H1/H2 antagonists also were discontinued Were discontinued as this is not likely angioedema Received one day with clindamycin Continue treatment with Vancomycin and Zosyn day 2 and will adjust medication per culture results (2) Hepatitis C Current Visit: Yes Status: Chronic Assessment and Plan: Positive hepatitis C Ab Likely secondary to history of IV drug use Liver enzymes within normal limits Continue management as outpatient (3) History of intravenous drug abuse Current Visit: Yes Status: Acute Assessment and Plan: In discussion with patient she has been clean 60 days post treatment facility, we will be cautious with giving narcotics (4) DVT prophylaxis Current Visit: Yes Status: Acute Assessment and Plan: Continue lovenox (5) GERD (gastroesophageal reflux disease) Current Visit: Yes Status: Acute Assessment and Plan: Patient complained of reflux She will continue to take home omeprazole (6) Psychiatric disorder Current Visit: Yes Status: Acute Assessment and Plan: History of bipolar disorder managed by psychiatry Has been relatively well controlled We will continue to give home [place] as we do not suspect angioedema Continue to hold risperidone and defer management to outpatient psychiatry Do not suspect that medication changes were the cause of her swelling (7) Anemia Current Visit: Yes Status: Acute Assessment and Plan: Patient has low hemoglobin levels 8.8 which is downtrending from 11 at admission She is iron deficient Iron 35, iron % saturation 9, ferritin WNL Folate and B12 were WNL possibly due to reactive vs iron deficiency vs GI bleed Patient does admit to using chronic NSAIDS but is having no abdominal pain and denies melena and hematochezia Patient does admit to ahistory of gastric ulcers diagnosed multiple years ago at [facility], she reports no secondary bleeding at that time Will continue to trend daily labs and monitor for any signs of bleeding transfuse PRN - Time Spent with Patient Total time spent is greater than 50% in coordination of care (as documented) at patient's floor/unit and/or counseling patient: Internal Medicine: Result - Labs CBC & Chem 7: 02/17/18 02:47 02/17/18 02:47 Labs: Short CBC 02/17/18 Range/Units 02:47 WBC 8.1 (4.3-11.1) K/mcL Hgb 8.8 L (11.5-15.4) g/dL Hct 27.0 L (35.3-44.9) % Plt Count 133 L (140-400) K/mcL Neutrophils # 6.2 (1.6-8.9) K/mcL BMP 02/17/18 02:47 Sodium 139 Potassium 4.3 Chloride 110 H Carbon Dioxide 26 BUN 25 H Creatinine 0.80 Glucose 106 H Calcium 8.3 L - ABG Interpretation ABG results: ABG ABG pH 7.37 pH Units (7.32-7.45) 02/15/18 05:20 ABG pCO2 46 mmHg (35-45) H 02/15/18 05:20 ABG pO2 114 mmHg (85-104) H 02/15/18 05:20 ABG O2 Saturation 98 % (95-98) 02/15/18 05:20 PT/INR, D-dimer PT 11.2 Seconds (9.4-12.1) 02/14/18 23:04 Consult Discharge Plan - Plan Referrals: NONE,PCP [Primary Care Provider] - (2) Hepatitis C Qualifiers: Viral hepatitis chronicity: unspecified Hepatic coma status: without hepatic coma Qualified Code(s): B19.20 - Unspecified viral hepatitis C without hepatic coma (5) GERD (gastroesophageal reflux disease) Qualifiers: Esophagitis presence: esophagitis presence not specified Qualified Code(s): K21.9 - Gastro-esophageal reflux disease without esophagitis (7) Anemia Qualifiers: Anemia type: iron deficiency Iron deficiency anemia type: unspecified iron deficiency Qualified Code(s): D50.9 - Iron deficiency anemia, unspecified
--- NOTE | 2018-02-17 16:20 | Event Note ---
Date of Encounter: 02/17/18 Time of Encounter: 10:00 I have seen and examined this pt independently. I have discussed with resident physician Dr Veloz and medical student regarding the management plan. Please refer the progress note for details. D/W pt, she has lip abscess which account for edema, not angioedema, will resume all her home meds, pt agrees with the plan..
[2018-02-17] MEDS: Chlorhexidine Rinse 15 ML MOUTHWASH MM SCH (18:38)
[2018-02-17] MEDS: risperiDONE 1 MG TABLET PO SCH (18:38)
[2018-02-17] MEDS: OXYCODONE Oral CONC 10 MG/0.5 ML ORAL.SYG SL PRN (18:42)
[2018-02-17 22:16] LABS: Hematocrit 29.9 % (35.3-44.9); Hemoglobin 9.6 g/dL (11.5-15.4)
[2018-02-18] MEDS: OXYCODONE Oral CONC 10 MG/0.5 ML ORAL.SYG SL PRN ×4 (02:21→21:59)
[2018-02-18] MEDS: *HR* HYDROcodone/Acet 5/325 mg TABLET PO PRN ×3 (03:34→18:48)
[2018-02-18] MEDS: Piperacillin/Tazobactam 3.375 GM in 0.9 % Sodium Chloride Mini Bag 100 ML IVPB SCH ×3 (04:49→21:57)
[2018-02-18] MEDS: Ketorolac 30 MG/ML VIAL IVP PRN ×3 (04:53→23:21)
[2018-02-18] MEDS: *HR* Enoxaparin 40 MG/0.4 ML SYRINGE SQ SCH (04:58)
[2018-02-18 05:12] LABS: Hematocrit 28.4 % (35.3-44.9); Hemoglobin 9.2 g/dL (11.5-15.4); Immature Granulocytes % 0.2 % (0-4); Lymphocytes # 1.8 K/mcL (0.6-4.6); Mean Corpuscular HGB Conc 32.4 g/dL (31.6-35.5); Mean Corpuscular Hemoglobin 29.4 pg (28.0-33.3); Mean Corpuscular Volume 90.7 fL (83.0-100.0); Mean Platelet Volume 10.2 fL (9.4-12.4); Monocytes # 0.3 K/mcL (0.0-1.3); Monocytes % 6.3 %; Neutrophils # 3.3 K/mcL (1.6-8.9); Platelet Count 132 K/mcL (140-400); Red Blood Count 3.13 M/mcL (3.82-4.97); Red Cell Distribution Width 12.5 % (11.5-14.5); Segmented Neutrophils % 60.5 %
[2018-02-18 05:40] LABS: BUN/Creatinine Ratio 24 (6-26); Blood Urea Nitrogen 20 mg/dL (6-20); Carbon Dioxide 25 mEq/L (23-29); Chloride 108 mEq/L (98-107); Glucose 119 mg/dL (70-105); Magnesium 1.7 mg/dL (1.6-2.6); Osmolality,Calculated 290 (280-300); Potassium 4.1 mEq/L (3.5-5.1); Sodium 138 mEq/L (136-145); eGFR For Non-African Americans > 60 (> 60)
--- NOTE | 2018-02-18 09:29 | ENT - Progress Note ---
Date of Encounter: 02/18/18 Time of Encounter: 09:27 - Assessment and Plan (1) Abscess of lip Current Visit: Yes Status: Acute pt is s/p I&D of left upper lip abscess and right nasal furuncle - POD #2 - continues to clinically improve. pt is afebrile and WBC is now normal at 5.4. pt is feeling better with less pain. culture results still pending for sensitivities. pt on broad spectrum IV Abx (Vancomycin and Zosyn). she still has some induration in the left cheek lateral to the abscess cavity but I expect this to be slow to resolve given the extent of her infection. I have called the micro lab to see why the culture ID and sensitivities are not available yet. would recommend continue current IV regimen until the C&S are available. warm compresses to face tid continue peridex rinses discussed with patient that I feel her shoulder muscle soreness is likely related to the intubation and is not related to her upper lip abscess/infection. discussed with patient. questions answered. (2) Abscess, furuncle and carbuncle of nose Current Visit: Yes Status: Acute see A&P above for lip abscess Subjective Narrative: Continues to improve. Less pain and eating regular diet. swelling is also improved. she has some shoulder and neck stiffness since intubation. Objective Initial Vital Signs Temp Pulse Resp BP Pulse Ox 98.4 F 114 22 108/67 100 02/14/18 22:13 02/14/18 22:13 02/14/18 22:13 02/14/18 22:13 02/14/18 22:13 - ENT Other (left upper lip edema is improved from yesterday, no erythema. starch mangle tender to palpation and there is still some induration laterally to the abscess that was drained but is smaller in size compared to yesterday. no fluctuance, mucosal incision site is clean. right nasal furuncle almost completely resolved. ) - Labs 02/18/18 05:00 02/18/18 05:00 Diabetes panel 02/18/18 Range/Units 05:00 Sodium 138 (136-145) mEq/L Potassium 4.1 (3.5-5.1) mEq/L Chloride 108 H (98-107) mEq/L Carbon Dioxide 25 (23-29) mEq/L BUN 20 (6-20) mg/dL Creatinine 0.82 (0.60-1.20) mg/dL Glucose 119 H (70-105) mg/dL Calcium 8.0 L (8.6-10.3) mg/dL Calcium panel 02/18/18 Range/Units 05:00 Calcium 8.0 L (8.6-10.3) mg/dL Pituitary panel 02/18/18 Range/Units 05:00 Sodium 138 (136-145) mEq/L Potassium 4.1 (3.5-5.1) mEq/L Chloride 108 H (98-107) mEq/L Carbon Dioxide 25 (23-29) mEq/L BUN 20 (6-20) mg/dL Creatinine 0.82 (0.60-1.20) mg/dL Glucose 119 H (70-105) mg/dL Calcium 8.0 L (8.6-10.3) mg/dL Adrenal panel 02/18/18 Range/Units 05:00 Sodium 138 (136-145) mEq/L Potassium 4.1 (3.5-5.1) mEq/L Chloride 108 H (98-107) mEq/L Carbon Dioxide 25 (23-29) mEq/L BUN 20 (6-20) mg/dL Creatinine 0.82 (0.60-1.20) mg/dL Glucose 119 H (70-105) mg/dL Calcium 8.0 L (8.6-10.3) mg/dL culture results from I&D of left upper lip abscess still pending. called lab to update results and they are looking for it. Consult Discharge Plan - Plan Referrals: NONE,PCP [Primary Care Provider] -
[2018-02-18] MEDS: risperiDONE 1 MG TABLET PO SCH (09:39)
[2018-02-18] MEDS: Lactobacillus 1 EACH CAP.SPRINK PO SCH (09:39)
[2018-02-18] MEDS: lamoTRIgine 25 MG TABLET PO SCH (09:39)
[2018-02-18] MEDS: Chlorhexidine Rinse 15 ML MOUTHWASH MM SCH ×3 (09:40→17:09)
--- NOTE | 2018-02-18 11:20 | Internal Med Progress Note ---
Hospitalist Progress Note - Encounter Date of Encounter: 02/18/18 Time of Encounter: 09:00 - Subjective Interval History: Pt still has left upper lip/ cheek swelling. Pain is less. No fever. Home med lamotrigine and risperidone restarted yesterday, no tongue swellin, rashes, difficult/swallowing/breathing. - Exam Vitals: Temp Pulse Resp BP Pulse Ox 97.7 F 80 16 113/75 98 02/18/18 10:00 02/18/18 10:00 02/18/18 10:00 02/18/18 10:02/18/18 10:00 Exam: Gen: patient AAO x 3, NAD appeared pleasant HEENT: General appearance normocephalic, atraumatic swelling in left upper lip and left cheek, with tenderness. Neck: Supple, no JVD CV: RRR, no rubs or clicks Resp: CTAB no rhonchi or rales noted, not working to breathe Abd: normal bowel sounds in 4 quadrants, nontender Psych: pleasant demeanor, answered questions appropriately Neuro: EOMI, CN 9, 10 and 12 grossly intact - Assessment and Plan (1) Angioedema Current Visit: Yes Status: Ruled-out Assessment and Plan: Has been ruled out as swelling is clearly due to abscess and infection. Restart risperidone/lamotrigine now, no signs of allergy so far. (2) Hepatitis C Current Visit: Yes Status: Chronic Assessment and Plan: Positive hepatitis C Ab Likely secondary to history of IV drug use Liver enzymes within normal limits Continue management as outpatient. Pt was informed the result and that Hep C is treatable and curable now. She will f/u PCP or GI as outpatient. SW consulted for PCP arrangement (Pt has no PCP). (3) History of intravenous drug abuse Current Visit: Yes Status: Acute Assessment and Plan: Patient states she has been clean for 60 days (4) DVT prophylaxis Current Visit: Yes Status: Acute Assessment and Plan: Lovenox 40 mg subcutaneous daily (5) GERD (gastroesophageal reflux disease) Current Visit: Yes Status: Acute Assessment and Plan: Cont home PPI (6) Psychiatric disorder Current Visit: Yes Status: Acute Assessment and Plan: Currently well controlled and patient is having minimal symptoms Home psych med restarted. (7) Facial infection Current Visit: Yes Status: Acute Assessment and Plan: ENT consult anf follow up appreciated. Had I/D of abscess. WBC trend down, no fever. Still swelling but pain has significantly improved. - Cont vanco/zosyn - Follow wound and blood culture result. (blood culture drawn in [place]) DVT Prophylaxis: Lovenox SC - Time Spent with Patient Total time spent is greater than 50% in coordination of care (as documented) at patient's floor/unit and/or counseling patient: 40 min Greater than 35 minutes Plan of Care Discussed with: patient Internal Medicine: Result - Labs CBC & Chem 7: 02/18/18 05:00 02/18/18 05:00 Labs: Short CBC 02/17/18 02/18/18 Range/Units 22:00 05:00 WBC 5.4 (4.3-11.1) K/mcL Hgb 9.6 L 9.2 L (11.5-15.4) g/dL Hct 29.9 L 28.4 L (35.3-44.9) % Plt Count 132 L (140-400) K/mcL Neutrophils # 3.3 (1.6-8.9) K/mcL BMP 02/18/18 05:00 Sodium 138 Potassium 4.1 Chloride 108 H Carbon Dioxide 25 BUN 20 Creatinine 0.82 Glucose 119 H Calcium 8.0 L - ABG Interpretation ABG results: ABG ABG pH 7.37 pH Units (7.32-7.45) 02/15/18 05:20 ABG pCO2 46 mmHg (35-45) H 02/15/18 05:20 ABG pO2 114 mmHg (85-104) H 02/15/18 05:20 ABG O2 Saturation 98 % (95-98) 02/15/18 05:20 PT/INR, D-dimer PT 11.2 Seconds (9.4-12.1) 02/14/18 23:04 Consult Discharge Plan - Plan Referrals: NONE,PCP [Primary Care Provider] - (1) Angioedema Qualifiers: Encounter type: initial encounter Qualified Code(s): T78.3XXA - Angioneurotic edema, initial encounter (2) Hepatitis C Qualifiers: Viral hepatitis chronicity: unspecified Hepatic coma status: without hepatic coma Qualified Code(s): B19.20 - Unspecified viral hepatitis C without hepatic coma (5) GERD (gastroesophageal reflux disease) Qualifiers: Esophagitis presence: esophagitis presence not specified Qualified Code(s): K21.9 - Gastro-esophageal reflux disease without esophagitis
[2018-02-19] MEDS: *HR* HYDROcodone/Acet 5/325 mg TABLET PO PRN ×4 (01:43→22:16)
[2018-02-19] MEDS: Piperacillin/Tazobactam 3.375 GM in 0.9 % Sodium Chloride Mini Bag 100 ML IVPB SCH (04:41)
[2018-02-19] MEDS: *HR* Enoxaparin 40 MG/0.4 ML SYRINGE SQ SCH (04:42)
[2018-02-19] MEDS: Ketorolac 30 MG/ML VIAL IVP PRN ×2 (04:42→14:35)
[2018-02-19 05:04] LABS: Eosinophils % 0.5 %; Hematocrit 28.6 % (35.3-44.9); Hemoglobin 9.4 g/dL (11.5-15.4); Immature Granulocytes % 0.3 % (0-4); Lymphocytes # 1.6 K/mcL (0.6-4.6); Lymphocytes % 41.9 %; Mean Corpuscular HGB Conc 32.9 g/dL (31.6-35.5); Mean Corpuscular Hemoglobin 28.9 pg (28.0-33.3); Mean Platelet Volume 9.7 fL (9.4-12.4); Monocytes # 0.3 K/mcL (0.0-1.3); Monocytes % 7.2 %; Neutrophils # 1.9 K/mcL (1.6-8.9); Platelet Count 153 K/mcL (140-400); Red Blood Count 3.25 M/mcL (3.82-4.97); Red Cell Distribution Width 12.1 % (11.5-14.5); Segmented Neutrophils % 50.1 %
[2018-02-19 05:19] LABS: BUN/Creatinine Ratio 18 (6-26); Blood Urea Nitrogen 13 mg/dL (6-20); Calcium 8.4 mg/dL (8.6-10.3); Carbon Dioxide 28 mEq/L (23-29); Chloride 104 mEq/L (98-107); Glucose 113 mg/dL (70-105); Magnesium 1.6 mg/dL (1.6-2.6); Osmolality,Calculated 285 (280-300); Potassium 4.1 mEq/L (3.5-5.1); Sodium 137 mEq/L (136-145); eGFR For Non-African Americans > 60 (> 60)
[2018-02-19] MEDS: OXYCODONE Oral CONC 10 MG/0.5 ML ORAL.SYG SL PRN ×2 (06:08→12:59)
--- NOTE | 2018-02-19 08:14 | ENT - Progress Note ---
Date of Encounter: 02/19/18 Time of Encounter: 08:08 - Assessment and Plan (1) Abscess of lip Current Visit: Yes Status: Acute pt is s/p I&D of left upper lip abscess and right nasal furuncle - POD #3 - continues to clinically improve. pt is afebrile and WBC continues to decrease - now 3.8. pt is feeling better with less pain. culture of left upper lip abscess - MRSA, sensitive to Bactrim I feel patient can be d/c home today on Bactrim DS one po bid x 14 days. I would recommend this abx because of the twice daily dosing which will be easier for patient to remember given her social/living situation. also recommend patient be d/c home on peridex mouth rinses after each meal mupirocin ointment - apply to both nares with cotton swab bid x 1 month. 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 discussed with patient that the induration of left upper lip/cheek will take at least 7-10 days to resolve. questions answered. (2) Abscess, furuncle and carbuncle of nose Current Visit: Yes Status: Acute see A&P above for lip abscess Subjective Patient reports: no new complaints (continues to improve. less pain, less swelling in left upper lip. ) Objective Initial Vital Signs Temp Pulse Resp BP Pulse Ox 98.4 F 114 22 108/67 100 02/14/18 22:13 02/14/18 22:13 02/14/18 22:13 02/14/18 22:13 02/14/18 22:13 - ENT Other (left cheek edema improved, there is decreased induration and erythema of left upper lip compared to yesterday. right nares is normal.) - Labs 02/19/18 04:45 02/19/18 04:00 Diabetes panel 02/19/18 Range/Units 04:00 Sodium 137 (136-145) mEq/L Potassium 4.1 (3.5-5.1) mEq/L Chloride 104 (98-107) mEq/L Carbon Dioxide 28 (23-29) mEq/L BUN 13 (6-20) mg/dL Creatinine 0.71 (0.60-1.20) mg/dL Glucose 113 H (70-105) mg/dL Calcium 8.4 L (8.6-10.3) mg/dL Calcium panel 02/19/18 Range/Units 04:00 Calcium 8.4 L (8.6-10.3) mg/dL Pituitary panel 02/19/18 Range/Units 04:00 Sodium 137 (136-145) mEq/L Potassium 4.1 (3.5-5.1) mEq/L Chloride 104 (98-107) mEq/L Carbon Dioxide 28 (23-29) mEq/L BUN 13 (6-20) mg/dL Creatinine 0.71 (0.60-1.20) mg/dL Glucose 113 H (70-105) mg/dL Calcium 8.4 L (8.6-10.3) mg/dL Adrenal panel 02/19/18 Range/Units 04:00 Sodium 137 (136-145) mEq/L Potassium 4.1 (3.5-5.1) mEq/L Chloride 104 (98-107) mEq/L Carbon Dioxide 28 (23-29) mEq/L BUN 13 (6-20) mg/dL Creatinine 0.71 (0.60-1.20) mg/dL Glucose 113 H (70-105) mg/dL Calcium 8.4 L (8.6-10.3) mg/dL upper lip abscess culture - MRSA, sensitive to Bactrim WBC - 3.8 today Consult Discharge Plan - Plan Referrals: NONE,PCP [Primary Care Provider] -
[2018-02-19] MEDS ORDERED: Aminoglycoside Consult 1 EACH MC ONE (09:35)
[2018-02-19] MEDS: lamoTRIgine 25 MG TABLET PO SCH (09:41)
[2018-02-19] MEDS: risperiDONE 1 MG TABLET PO SCH (09:41)
[2018-02-19] MEDS: Chlorhexidine Rinse 15 ML MOUTHWASH MM SCH ×3 (09:41→16:14)
[2018-02-19] MEDS: Lactobacillus 1 EACH CAP.SPRINK PO SCH (09:41)
--- NOTE | 2018-02-19 12:21 | Internal Med Progress Note ---
Hospitalist Progress Note - Encounter Date of Encounter: 02/19/18 Time of Encounter: 09:00 - Subjective Interval History: Pt's lip and left cheek swelling significantly decreased. Minimal pain, no fever. Change to po bactrim DS today. - Exam Vitals: Temp Pulse Resp BP Pulse Ox 97.7 F 84 16 121/77 96 02/19/18 10:56 02/19/18 10:56 02/19/18 10:56 02/19/18 10:56 02/19/18 10:56 Exam: Gen: patient AAO x 3, NAD appeared pleasant HEENT: General appearance normocephalic, atraumatic swelling in left upper lip and left cheek, with mild tenderness. Neck: Supple, no JVD CV: RRR, no rubs or clicks Resp: CTAB no rhonchi or rales noted, not working to breathe Abd: normal bowel sounds in 4 quadrants, nontender Psych: pleasant demeanor, answered questions appropriately Neuro: EOMI, CN 9, 10 and 12 grossly intact - Assessment and Plan (1) Hepatitis C Current Visit: Yes Status: Chronic Assessment and Plan: Positive hepatitis C Ab Likely secondary to history of IV drug use Liver enzymes within normal limits Continue management as outpatient. Pt was informed the result and that Hep C is treatable and curable now. She will f/u PCP or GI as outpatient. SW consulted for PCP arrangement (Pt has no PCP). (2) History of intravenous drug abuse Current Visit: Yes Status: Acute Assessment and Plan: Patient states she has been clean for 60 days (3) DVT prophylaxis Current Visit: Yes Status: Acute Assessment and Plan: Lovenox 40 mg subcutaneous daily (4) GERD (gastroesophageal reflux disease) Current Visit: Yes Status: Acute Assessment and Plan: Cont home PPI (5) Psychiatric disorder Current Visit: Yes Status: Acute Assessment and Plan: Currently well controlled and patient is having minimal symptoms Home psych med restarted. (6) Facial infection Current Visit: Yes Status: Acute Assessment and Plan: ENT consult anf follow up appreciated. Had I/D of abscess. WBC trend down, no fever. Still swelling but pain has significantly improved. - Switch to po bactrim DS now, per sensitivity - Plan to d/c tomorrow if placement is ready. DVT Prophylaxis: Lovenox SC - Time Spent with Patient Total time spent is greater than 50% in coordination of care (as documented) at patient's floor/unit and/or counseling patient: 30 min 25 - 35 minutes Plan of Care Discussed with: patient Internal Medicine: Result - Labs CBC & Chem 7: 02/19/18 04:45 02/19/18 04:00 Labs: Short CBC 02/19/18 Range/Units 04:45 WBC 3.8 L (4.3-11.1) K/mcL Hgb 9.4 L (11.5-15.4) g/dL Hct 28.6 L (35.3-44.9) % Plt Count 153 (140-400) K/mcL Neutrophils # 1.9 (1.6-8.9) K/mcL BMP 02/19/18 04:00 Sodium 137 Potassium 4.1 Chloride 104 Carbon Dioxide 28 BUN 13 Creatinine 0.71 Glucose 113 H Calcium 8.4 L - ABG Interpretation ABG results: ABG ABG pH 7.37 pH Units (7.32-7.45) 02/15/18 05:20 ABG pCO2 46 mmHg (35-45) H 02/15/18 05:20 ABG pO2 114 mmHg (85-104) H 02/15/18 05:20 ABG O2 Saturation 98 % (95-98) 02/15/18 05:20 PT/INR, D-dimer PT 11.2 Seconds (9.4-12.1) 02/14/18 23:04 Consult Discharge Plan - Plan Referrals: NONE,PCP [Primary Care Provider] - (1) Hepatitis C Qualifiers: Viral hepatitis chronicity: unspecified Hepatic coma status: without hepatic coma Qualified Code(s): B19.20 - Unspecified viral hepatitis C without hepatic coma (4) GERD (gastroesophageal reflux disease) Qualifiers: Esophagitis presence: esophagitis presence not specified Qualified Code(s): K21.9 - Gastro-esophageal reflux disease without esophagitis
[2018-02-19] MEDS: traZODone 50 MG TABLET PO PRN (20:27)
[2018-02-19] MEDS: Sulfamethoxazole/Trimeth DS 1 EACH TABLET PO SCH (20:28)
[2018-02-20] MEDS: *HR* HYDROcodone/Acet 5/325 mg TABLET PO PRN ×2 (04:36→12:32)
[2018-02-20] MEDS: Ketorolac 30 MG/ML VIAL IVP PRN ×2 (04:37→10:58)
[2018-02-20] MEDS: *HR* Enoxaparin 40 MG/0.4 ML SYRINGE SQ SCH (04:37)
[2018-02-20] MEDS ORDERED: Ondansetron 4 MG/2 ML VIAL IVP PRN ×3 (06:20→10:50)
[2018-02-20 07:29] VITALS: BP 123/88
[2018-02-20] MEDS: Chlorhexidine Rinse 15 ML MOUTHWASH MM SCH ×2 (09:36→13:44)
[2018-02-20] MEDS: risperiDONE 1 MG TABLET PO SCH (09:37)
[2018-02-20] MEDS: lamoTRIgine 25 MG TABLET PO SCH (09:37)
[2018-02-20] MEDS: Lactobacillus 1 EACH CAP.SPRINK PO SCH (09:37)
[2018-02-20] MEDS: Sulfamethoxazole/Trimeth DS 1 EACH TABLET PO SCH (09:38)
--- NOTE | 2018-02-20 11:45 | Discharge Summary ---
<Trinity Veloz Khoa - Last Filed: 02/20/18 13:26> - NOTES TO OUTPATIENT PROVIDER Notes to Outpatient Provider: Follow up with PCP within 1 week. Patient needs outpatient follow up for Hep C and anemia. Orders not resulted at time of discharge: Pending orders 02/16/18 16:20 Culture,Anaerobic [RM] Routine Date of Encounter: 02/20/18 Time of Encounter: 10:02 - Discharge Diagnosis (1) Anemia Priority: Secondary Status: Acute Qualifiers: Anemia type: iron deficiency Iron deficiency anemia type: unspecified iron deficiency Qualified Code(s): D50.9 - Iron deficiency anemia, unspecified (2) Abscess of lip Priority: Primary Status: Acute (3) Hepatitis C Priority: Secondary Status: Chronic Qualifiers: Viral hepatitis chronicity: unspecified Hepatic coma status: without hepatic coma Qualified Code(s): B19.20 - Unspecified viral hepatitis C without hepatic coma (4) History of intravenous drug abuse Priority: Secondary Status: Chronic (5) GERD (gastroesophageal reflux disease) Priority: Secondary Status: Chronic Qualifiers: Esophagitis presence: esophagitis presence not specified Qualified Code(s) : K21.9 - Gastro-esophageal reflux disease without esophagitis Hospital course: Ms. Owen is a 42 year old female with a history of chronic pain, IVDA, and Hep C, and reported gastric ulcer years ago who presented to the ED from the drug rehab facility with a 2 days history of left lip swelling and reported fever at home. She was recently treated at urgent care for impetigo with Amoxicillin without improvement. She has been started on Lamictal and Risperdone 1 week prior for bipolar disorder, which lead to concerns for angioedema. She was intubated in the ED and arrived to the ICU in stable condition. She received Clindamycin for possible infection as well as Benadryl and steroids for possible angioedema. Facial CT was negative for abscess, but patient's swelling was worsening, at which time ENT was consulted. Upon evaluation, patient was found to have an abscess with incision and drainage on . Patient was started on Vanc and Zosyn for broad spectrum coverage and was then transitioned to oral Bactrim for discharge. Due to patient complaint of upset stomach and 1 episode of vomiting, she was switched to oral Clinda for 14 days at discharge. She was also found to be anemic with a hemoglobin of 9.2 and iron deficient with an iron of 35. Recommend outpatient follow up to consider additional anemia workup. Patient was educated on treatment for hep C with recommended outpatient follow up. She was discharged in stable condition. Discharge discussed with: patient - Time Spent with Patient Total time spent providing and/or coordinating discharge services: Greater than 30 minutes - Discharge Medications Prescriptions: Clindamycin [Cleocin] 300 mg PO Q8HR #84 capsule Lactobacillus [Culturelle] 2 each PO DAILY #28 cap.sprink Home Medications: Omeprazole [PriLOSEC] 40 mg PO DAILY 02/14/18 [History] lamoTRIgine [Lamictal] 25 mg PO DAILY 02/14/18 [History] risperiDONE [Risperdal] 1 mg PO HS 02/14/18 [History] Clindamycin [Cleocin] 300 mg PO Q8HR #84 capsule 02/20/18 [Rx] Lactobacillus [Culturelle] 2 each PO DAILY #28 cap.sprink 02/20/18 [Rx] Allergies/Adverse Reactions: 3 Allergy/AdvReac Type Severity Reaction Status Date / Time No Known Allergies Allergy Verified 02/14/18 21:33 Date of admission: 02/14/18 22:30 Primary care physician: PCP NONE Consults: 02/16/18 11:52 Consult to ENT [CONS] Routine Consulting Provider: ENT Che Reason for Consult: Lip swelling, infection vs angioedema with swelling worsening Call Completed: No 02/17/18 08:55 Consult to Invasive Line Access Team [CONS] Routine Reason for Consult: poor access Line Type: EPIV 02/18/18 11:27 Consult to Linux Systems Analyst [CONS] Routine Reason for SW Consult: Pt has no PCP - Constitutional Vitals: Temp Pulse Resp BP Pulse Ox 98.8 F 85 16 123/88 92 02/20/18 09:58 02/20/18 07:21 02/20/18 07:21 02/20/18 07:21 02/20/18 07:21 Exam: Gen: patient AAO x 3, NAD HEENT: General appearance normocephalic, atraumatic with improved swelling in left upper lip and left cheek, with mild tenderness. Neck: Supple, no JVD CV: RRR, no rubs or clicks Resp: CTAB no wheezing noted Abd: BS x4, soft, diffuse mild tenderness to palpation Psych: pleasant demeanor, answered questions appropriately - Patient Status Disposition: Home, Self-Care Condition: Good Functional capacity at discharge: independent ambulation Overall status at discharge: patient is progressing back to baseline - Discharge Instructions Instructions: Angioedema (GEN) Follow Up With: Anabelle Escobar BUSINESS ASSOCIATE [Advanced Practice Nurse] - 03/01/18 1:30 pm (Please arrive 1/2 hour early to fill out paperwork. You will need to bring your photo ID, insurance card and any medications you are on. If you need to cancel, please give a 24 hour notice. Thank you) Forms: Inpatient Work/School Release - Diet and Activity Activity: increase activity as tolerated Diet: regular diet <Gertrudis Vaughn - Last Filed: 02/20/18 14:27> Orders not resulted at time of discharge: Pending orders 02/16/18 16:20 Culture,Anaerobic [RM] Routine Date of Encounter: 02/20/18 - Discharge Diagnosis (1) Hepatitis C Status: Chronic Qualifiers: Viral hepatitis chronicity: unspecified Hepatic coma status: without hepatic coma Qualified Code(s): B19.20 - Unspecified viral hepatitis C without hepatic coma (2) History of intravenous drug abuse Status: Chronic (3) DVT prophylaxis Status: Acute (4) GERD (gastroesophageal reflux disease) Status: Chronic Qualifiers: Esophagitis presence: esophagitis presence not specified Qualified Code(s) : K21.9 - Gastro-esophageal reflux disease without esophagitis (5) Psychiatric disorder Status: Acute (6) Facial infection Status: Acute Hospital course: Ms. Owen is a 42 year old female - Time Spent with Patient Total time spent providing and/or coordinating discharge services: Date of admission: 02/14/18 22:30 Primary care physician: PCP NONE Consults: 02/16/18 11:52 Consult to ENT [CONS] Routine Consulting Provider: JOSE Bolton Reason for Consult: Lip swelling, infection vs angioedema with swelling worsening Call Completed: No 02/17/18 08:55 Consult to Invasive Line Access Team [CONS] Routine Reason for Consult: poor access Line Type: EPIV 02/18/18 11:27 Consult to Linux Systems Analyst [CONS] Routine Reason for SW Consult: Pt has no PCP - Constitutional Vitals: Temp Pulse Resp BP Pulse Ox 98.8 F 85 16 123/88 92 02/20/18 09:58 02/20/18 07:21 02/20/18 07:21 02/20/18 07:21 02/20/18 07:21 - Patient Status Functional capacity at discharge: independent ambulation Overall status at discharge: patient is progressing back to baseline - Attending Attestation I have seen and examined this pt independently. I have discussed with resident physician Dr Veloz regarding the discharge and follow up plan. Agree with the documentation.
== END 2018-02-20 15:15 | disposition home or self-care (01) | DRG 580 ==
LOC: ICNU 22:30 → SUATTDRO 22:30 → 2SOUTHHOLD 02-16 08:21 → 3ANU 02-16 17:21
PROVIDERS: ADMIT Internal Medicine; ATTEND Internal Medicine

== ENCOUNTER 2018-02-21 00:06 | Observation (INO) ==
[2018-02-21] MEDS ORDERED: Naloxone 0.4 MG/ML INJ IVP PRN (02:34)
[2018-02-21 03:40] LABS: Hematocrit 30.4 % (35.3-44.9); Hemoglobin 9.9 g/dL (11.5-15.4); Immature Granulocytes % 0.2 % (0-4); Lymphocytes # 0.9 K/mcL (0.6-4.6); Lymphocytes % 18.3 %; Mean Corpuscular HGB Conc 32.6 g/dL (31.6-35.5); Mean Corpuscular Hemoglobin 28.9 pg (28.0-33.3); Mean Corpuscular Volume 88.6 fL (83.0-100.0); Mean Platelet Volume 9.5 fL (9.4-12.4); Monocytes # 0.1 K/mcL (0.0-1.3); Monocytes % 1.8 %; Neutrophils # 3.9 K/mcL (1.6-8.9); Platelet Count 186 K/mcL (140-400); Red Blood Count 3.43 M/mcL (3.82-4.97); Segmented Neutrophils % 79.7 %
[2018-02-21 03:57] LABS: Alanine Aminotransferase 10 Units/L (7-52); Albumin 3.5 g/dL (3.5-5.7); Albumin/Globulin Ratio 1.4 (1.1-2.2); Alkaline Phosphatase 53 Units/L (34-104); Aspartate Amino Transferase 11 Units/L (13-39); BUN/Creatinine Ratio 23 (6-26); Bilirubin,Total 0.3 mg/dL (0.3-1.0); Blood Urea Nitrogen 20 mg/dL (6-20); Calcium 8.3 mg/dL (8.6-10.3); Carbon Dioxide 25 mEq/L (23-29); Chloride 106 mEq/L (98-107); Globulin 2.5 g/dL (2.4-3.5); Glucose 118 mg/dL (70-105); Magnesium 1.9 mg/dL (1.6-2.6); Osmolality,Calculated 286 (280-300); Potassium 4.6 mEq/L (3.5-5.1); Sodium 136 mEq/L (136-145); eGFR For Non-African Americans > 60 (> 60)
--- NOTE | 2018-02-21 07:40 | Internal Med History&Physical ---
Date of Encounter: 02/21/18 Time of Encounter: 03:45 Internal Medicine - H&P: HPI Chief complaint: SOB History of present illness: Ms. Owen is a 42 year old female past medical history of IVDA, hepatitis C who was discharged earlier today after receiving treatment angioedema status post extubation and incision and drainage of a left upper lip abscess and right nasal furuncle. Patient was discharged on on a 14 day course of Bactrim. Patient feels that she was discharged to soon and states that this evening while lying down for bed, she felt acutely short of breath. She subsequent he presented to [facility] where she was found to have a O2 saturation of 88% on room air. She was put on 2 L with improvement 97%. Chest x-ray and x-ray of the neck were unremarkable and showed no evidence of narrowing of her airway. Symptoms appeared to resolve at [place]. She was given 1 dose of methylprednisolone and transferred back to [place] for observation. Past Med Surg Social Fam HX - Past Medical History Medical history: hepatitis Additional medical history: hep C Psychiatric history: anxiety, bipolar - Past Surgical History Surgical History: non-contributory Additional surgical history: tubal - Social History Smoking Status: Never smoker Smokeless Tobacco Status: No Alcohol use: none Drug use: IV Drug Use - Family History Son Hx Family Endocrine Disorder: Yes (type 1 DM) Internal Medicine - H&P: Meds Omeprazole [PriLOSEC] 40 mg PO HS 02/14/18 [History] lamoTRIgine [Lamictal] 25 mg PO DAILY 02/14/18 [History] risperiDONE [Risperdal] 1 mg PO HS 02/14/18 [History] Clindamycin [Cleocin] 300 mg PO Q8HR #84 capsule 02/20/18 [Rx] Lactobacillus [Culturelle] 2 each PO DAILY #28 cap.sprink 02/20/18 [Rx] 3 Allergy/AdvReac Type Severity Reaction Status Date / Time No Known Allergies Allergy Verified 02/21/18 01:36 All Systems PM: A 10-system review of systems was performed and is negative for pertinent findings except as documented above in the HPI. - Constitutional Constitutional: no chills, no fever(s), no night sweats - EENT Eyes: no change in vision, no discharge, no pain, no photophobia Ears: no ear discharge, no ear pain, no tinnitus Nose, mouth and throat: no dysphagia, no nasal discharge, no neck pain, no sore throat - Cardiovascular Cardiovascular ROS IM: no chest pain, no diaphoresis, no dyspnea, no lightheadedness, no palpitations, no syncope - Respiratory Respiratory: no cough, no dyspnea, no wheezing, no excessive phlegm production - Gastrointestinal Gastrointestinal: no abdominal pain, no diarrhea, no hematemesis, no hematochezia, no melena, no nausea, no vomiting - Genitourinary Genitourinary: no change in urinary stream, no dysuria, no flank pain, no hematuria - Musculoskeletal Musculoskeletal ROS IM: no numbness, no tingling - Integumentary Integumentary IM: no rash, no unusual bruising - Neurological Neurological ROS: no confusion, no convulsions, no focal weakness, no numbness, no tingling, no tremor(s) - Hematologic/Lymphatic Hematologic/Lymphatic: no easy bruising - Constitutional Vitals: Temp Pulse Resp BP Pulse Ox 97.4 F L 76 16 93/64 98 02/21/18 07:20 02/21/18 07:20 02/21/18 07:20 02/21/18 07:20 02/21/18 07:20 Exam: General: Alert and oriented Skin:Normal color, no rash, no lesions. HEENT:EOM, pupils equal, round and reactive. Cardiovascular:Normal S1 & S2, no rubs, murmurs or gallops. No JVD. Pulse regular. Lungs:Normal breath sounds, no wheezes or crackles. Abdomen:Soft, non-tender, no rigidity. Extremities:No deformity, no edema or tenderness, no joint swelling or clubbing. Neurological:Normal cognition and motor skills. Pulses:Carotid and radial pulses normal +2. Rest of the physical exam is non contributory Internal Med - H&P Results - Labs CBC & Chem 7: 02/21/18 03:27 02/21/18 03:27 Labs: Short CBC 02/21/18 Range/Units 03:27 WBC 4.9 (4.3-11.1) K/mcL Hgb 9.9 L (11.5-15.4) g/dL Hct 30.4 L (35.3-44.9) % Plt Count 186 (140-400) K/mcL Neutrophils # 3.9 (1.6-8.9) K/mcL BMP 02/21/18 03:27 Sodium 136 Potassium 4.6 Chloride 106 Carbon Dioxide 25 BUN 20 Creatinine 0.88 Glucose 118 H Calcium 8.3 L Liver Function 02/21/18 Range/Units 03:27 Total Bilirubin 0.3 (0.3-1.0) mg/dL AST 11 L (13-39) Units/L ALT 10 (7-52) Units/L Alkaline Phosphatase 53 (34-104) Units/L Albumin 3.5 (3.5-5.7) g/dL - Assessment and plan (1) SOB (shortness of breath) Current Visit: Yes Status: Acute Assessment and plan: Patient presented to [place] complaining of shortness of breath. Found to be hypoxemic with a O2 sat of 88%. Repeat chest x-ray and a x-ray of the neck was unremarkable demonstrating a patent airway. Patient was put on 2 L liters of nasal cannula at [place] with O2 improving to 97%. Patient currently satting at 92 % on room air. No evidence of acute respiratory distress. Low suspicion for DVT/PE. No evidence of report of pleuritic chest pain or lower extremity swelling. No evidence of angioedema. We will monitor. (2) Abscess of lip Current Visit: No Status: Acute Assessment and plan: Left-sided amount particularly the upper lip remained swollen. No evidence of erythema. Continue patient on Bactrim. (3) Angioedema Current Visit: No Status: Acute Assessment and plan: No further evidence of angioedema at this time. Patient received 1 dose of methylprednisolone at [place]. We will monitor for now. We will hold patient's psych medications. Qualifiers: Encounter type: subsequent encounter Qualified Code(s): T78.3XXD - Angioneurotic edema, subsequent encounter - Time Spent With Patient Total time spent is greater than 50% in coordination of care (as documented) at patient's floor/unit and/or counseling patient:
[2018-02-21] MEDS: Acetaminophen 325 MG TABLET PO PRN (08:58)
[2018-02-21] MEDS: *HR* Heparin 5,000 UNIT/ML VIAL SQ SCH ×3 (08:58→22:11)
[2018-02-21] MEDS: Lactobacillus 1 EACH CAP.SPRINK PO SCH (08:59)
--- NOTE | 2018-02-21 10:25 | Internal Med Progress Note ---
Hospitalist Progress Note - Encounter Date of Encounter: 02/21/18 Time of Encounter: 10:22 - Exam Vitals: Temp Pulse Resp BP Pulse Ox 97.4 F L 85 18 93/64 95 02/21/18 07:20 02/21/18 10:00 02/21/18 10:00 02/21/18 07:20 02/21/18 10:00 Exam: General: Alert and oriented, no acute distress, pleasant Skin:Normal color, no rash, no lesions. HEENT:EOM, pupils equal, round and reactive. Airway grossly appear patent. Cardiovascular:Normal S1 & S2, no rubs, murmurs or gallops. No JVD. Pulse regular. Lungs:Normal breath sounds, no wheezes or crackles, no stridor. Extremities:No deformity, no edema or tenderness, no joint swelling or clubbing. Neurological:Normal cognition and motor skills. Pulses:Carotid and radial pulses normal +2. - Assessment and Plan (1) Abscess of lip Current Visit: No Status: Acute Assessment and Plan: Left-sided amount particularly the upper lip remained swollen. No evidence of erythema. Continue Clindamycin (2) Angioedema Current Visit: No Status: Acute Assessment and Plan: No further evidence of angioedema at this time. Patient received 1 dose of methylprednisolone at [place]. We will monitor for now. We will hold patient's psych medications. Consult ENT Continue Solu medrol here, 40 mg Q8H (3) SOB (shortness of breath) Current Visit: Yes Status: Acute Assessment and Plan: Acute respiratory failure, unknown cause at this time. Patient presented to [place] complaining of shortness of breath. Found to be hypoxemic with a O2 sat of 88%. Repeat chest x-ray and a x-ray of the neck was unremarkable demonstrating a patent airway. Patient was put on 2 L liters of nasal cannula at [place] with O2 improving to 97%. Patient currently satting at 92 % on room air. No evidence of acute respiratory distress. Low suspicion for DVT/PE. No evidence of report of pleuritic chest pain or lower extremity swelling. No evidence of angioedema. We will monitor. Now she is saturating well on room air. This morning she is in no acute distress Continue Solu medrol ENT consult, rule out obstructed airway - though lung exam looks grossly unremarkable CTA to rule out PE - Time Spent with Patient Total time spent is greater than 50% in coordination of care (as documented) at patient's floor/unit and/or counseling patient: Internal Medicine: Result - Labs CBC & Chem 7: 02/21/18 03:27 02/21/18 03:27 Labs: Short CBC 02/21/18 Range/Units 03:27 WBC 4.9 (4.3-11.1) K/mcL Hgb 9.9 L (11.5-15.4) g/dL Hct 30.4 L (35.3-44.9) % Plt Count 186 (140-400) K/mcL Neutrophils # 3.9 (1.6-8.9) K/mcL BMP 02/21/18 03:27 Sodium 136 Potassium 4.6 Chloride 106 Carbon Dioxide 25 BUN 20 Creatinine 0.88 Glucose 118 H Calcium 8.3 L Liver Function 02/21/18 Range/Units 03:27 Total Bilirubin 0.3 (0.3-1.0) mg/dL AST 11 L (13-39) Units/L ALT 10 (7-52) Units/L Alkaline Phosphatase 53 (34-104) Units/L Albumin 3.5 (3.5-5.7) g/dL Consult Discharge Plan - Plan Referrals: NONE,PCP [Primary Care Provider] - Johnathan Davis [Resident] - 03/01/18 2:00 pm (Please take the new patient packet that you received in the mail with you filled out to your appointment. Take Ins. Card, Picture ID, and a list of all medications including over the counter. Show up 15 mins early. If you need to cancel you appointment please call [phone] 24 hours prior to your appointment) (2) Angioedema Qualifiers: Encounter type: subsequent encounter Qualified Code(s): T78.3XXD - Angioneurotic edema, subsequent encounter
[2018-02-21] MEDS ORDERED: Isovue-370 500 ML INFUS..BTL IV ONE (10:26)
[2018-02-21] MEDS ORDERED: MethylPREDNISolone 40 MG/ML VIAL IVP STA (10:26)
--- NOTE | 2018-02-21 13:36 | ENT - Consult Note ---
<Felicia Gilliland - Last Filed: 02/21/18 17:27> Date of Encounter: 02/21/18 Time of Encounter: 12:00 Assessment and Plan (1) Angioedema Current Visit: No Status: Acute Nasolaryngoscopy performed today at bedside, which demonstrated a widely patent airway, with no edema, swelling, or obstruction. No other signs or symptoms of airway compromise at this time. Patient current with normal vital signs and oxygen saturation at 97% on room air. Continue close observation. Qualifiers: Encounter type: subsequent encounter Qualified Code(s): T78.3XXD - Angioneurotic edema, subsequent encounter (2) Cellulitis, lip Current Visit: Yes Status: Acute Patient seen and examined at bedside today by this provider and Dr. Saenz ENT physician. Nasolaryngoscopy performed today at bedside, which demonstrated a widely patent airway, with no edema, swelling, or obstruction. No other signs or symptoms of airway compromise at this time. Patient noted to have swelling localized to the left upper lip with induration, but no areas of fluctuance palpated. Previous abscess likely with odontological cause, as left upper teeth and gum line demonstrate severe decay with irritation. Discussed possible outpatient resources for discharge. Recommend to Continue oral clindamycin and IV steroids at this time. Continue close observation, will reassess tomorrow. If area worsens or does not improve will consider repeating imaging. All questions answered. History of Present Illness Consult date: 02/21/18 Reason for ENT Consult: other (angioedema) Requesting physician: Paulino Wallis History of present illness: Patient is a 42-year-old female with a past medical history of IVDA and hepatitis C. ENT consult during this admission for demonstrated hypoxia and concern of airway obstruction. Patient presented to [facility] overnight with complaint of shortness of breath and difficulty breathing. Patient was reported to have oxygen saturation at 88% while on room air upon initial arrival to [facility], which improved to 97% with administration of 2L oxygen via nasal cannula. Patient was given 1 dose of methylprednisolone at [facility] and transferred back to [place] for observation. Symptoms were reported to have resolved while at [facility]. Chest x-ray and x-ray of the neck completed at [facility] were unremarkable and showed no evidence of narrowing of the airway. Patient was recently discharged on 02/20/18 following admission for episode of angioedema status post intubation and extubation, and left lip abscess, right nasal furuncle, I&D completed on 02/16/18, by ENT physician while inpatient. Culture of abscess obtained at last visit which was positive for MRSA. Patient was discharged initially on 14 days course of bactrim which, was switched to oral clindamycin due to patient's reported intolerance of bactrim. Past Med Surg Social Fam HX - Past Medical History Medical history: hepatitis Additional medical history: hep C Psychiatric history: anxiety, bipolar - Past Surgical History Surgical History: non-contributory Additional surgical history: tubal - Social History Smoking Status: Never smoker Smokeless Tobacco Status: No Alcohol use: none Drug use: IV Drug Use - Family History Son Hx Family Endocrine Disorder: Yes (type 1 DM) Medications and Allergies Omeprazole [PriLOSEC] 40 mg PO HS 02/14/18 [History] lamoTRIgine [Lamictal] 25 mg PO DAILY 02/14/18 [History] risperiDONE [Risperdal] 1 mg PO HS 02/14/18 [History] Clindamycin [Cleocin] 300 mg PO Q8HR #84 capsule 02/20/18 [Rx] Lactobacillus [Culturelle] 2 each PO DAILY #28 cap.sprink 02/20/18 [Rx] 3 Allergy/AdvReac Type Severity Reaction Status Date / Time No Known Allergies Allergy Verified 02/21/18 01:36 ENT - ROS - EENT Nose, mouth and throat: lip swelling (left upper lip) ENT Exam Initial Vital Signs Pulse Ox 96 02/21/18 01:39 - General physical appearance well developed, no distress - Eyes PERRL, normal ocular movement - ENT normal pinna, normal nares, normal mucosa, CN 2-12 grossly intact, Other (Ears: TM's normal bilateral, bilateral EAC clear. Nose: Nasal septum grossly midline. Mucosa moist without lesion. Face: Swelling of the left uppper lip noted with 3 -4 cm area of induration noted which extends into the left buccal mucosa. No areas of fluctuance palpated. Oral cavity: patient tolerating and controlling secretions well. teeth with severe decay with left upper teeth with erosion to the gum line, multiple teeth absent upper and lower. Left upper gums with redness and irritation. bimanual oral palpation revealed no swelling or masses. tongue midline without swelling or edema. Pharynx: ulvula midline, tonsils atrophied. oropharynx widely patent. ) - Neck no masses, trachea midline, no lymphadectomy - Respiratory normal expansion, normal respiratory effort, other (patient with easy respirations, non labored while lying flat. Negative for stridor or wheezing. ) - Neurologic CN 2-12 grossly intact - Psychiatric oriented to time, oriented to person, oriented to place, speech is normal Exam Initial Vital Signs Pulse Ox 96 02/21/18 01:39 Results - Labs 02/21/18 03:27 02/21/18 03:27 Abnormal lab results RBC 3.43 M/mcL (3.82-4.97) L 02/21/18 03:27 Hgb 9.9 g/dL (11.5-15.4) L 02/21/18 03:27 Hct 30.4 % (35.3-44.9) L 02/21/18 03:27 Glucose 118 mg/dL (70-105) H 02/21/18 03:27 Calcium 8.3 mg/dL (8.6-10.3) L 02/21/18 03:27 AST 11 Units/L (13-39) L 02/21/18 03:27 Serum Total Protein 6.0 g/dL (6.4-8.9) L 02/21/18 03:27 Diabetes panel 02/21/18 Range/Units 03:27 Sodium 136 (136-145) mEq/L Potassium 4.6 (3.5-5.1) mEq/L Chloride 106 (98-107) mEq/L Carbon Dioxide 25 (23-29) mEq/L BUN 20 (6-20) mg/dL Creatinine 0.88 (0.60-1.20) mg/dL Glucose 118 H (70-105) mg/dL Calcium 8.3 L (8.6-10.3) mg/dL AST 11 L (13-39) Units/L ALT 10 (7-52) Units/L Alkaline Phosphatase 53 (34-104) Units/L Albumin 3.5 (3.5-5.7) g/dL Calcium panel 02/21/18 Range/Units 03:27 Calcium 8.3 L (8.6-10.3) mg/dL Albumin 3.5 (3.5-5.7) g/dL Pituitary panel 02/21/18 Range/Units 03:27 Sodium 136 (136-145) mEq/L Potassium 4.6 (3.5-5.1) mEq/L Chloride 106 (98-107) mEq/L Carbon Dioxide 25 (23-29) mEq/L BUN 20 (6-20) mg/dL Creatinine 0.88 (0.60-1.20) mg/dL Glucose 118 H (70-105) mg/dL Calcium 8.3 L (8.6-10.3) mg/dL Adrenal panel 02/21/18 Range/Units 03:27 Sodium 136 (136-145) mEq/L Potassium 4.6 (3.5-5.1) mEq/L Chloride 106 (98-107) mEq/L Carbon Dioxide 25 (23-29) mEq/L BUN 20 (6-20) mg/dL Creatinine 0.88 (0.60-1.20) mg/dL Glucose 118 H (70-105) mg/dL Calcium 8.3 L (8.6-10.3) mg/dL Total Bilirubin 0.3 (0.3-1.0) mg/dL AST 11 L (13-39) Units/L ALT 10 (7-52) Units/L Alkaline Phosphatase 53 (34-104) Units/L Albumin 3.5 (3.5-5.7) g/dL All other labs normal. Consult Discharge Plan - Plan Referrals: Anabelle Escobar, [employer]ENDER [Advanced Practice Nurse] - 03/01/18 1:30 pm <Hernandez Saenz - Last Filed: 02/22/18 07:46> Date of Encounter: 02/22/18 Assessment and Plan (1) Angioedema Current Visit: No Status: Acute Qualifiers: Encounter type: subsequent encounter Qualified Code(s): T78.3XXD - Angioneurotic edema, subsequent encounter (2) Cellulitis, lip Current Visit: Yes Status: Acute ENT Exam Initial Vital Signs Pulse Ox 96 02/21/18 01:39 Exam Initial Vital Signs Pulse Ox 96 02/21/18 01:39 Results - Labs 02/22/18 04:00 02/22/18 04:00 Abnormal lab results RBC 3.37 M/mcL (3.82-4.97) L 02/22/18 04:00 Hgb 9.6 g/dL (11.5-15.4) L 02/22/18 04:00 Hct 29.4 % (35.3-44.9) L 02/22/18 04:00 MPV 9.1 fL (9.4-12.4) L 02/22/18 04:00 Chloride 108 mEq/L (98-107) H 02/22/18 04:00 BUN 23 mg/dL (6-20) H 02/22/18 04:00 BUN/Creatinine Ratio 31 (6-26) H 02/22/18 04:00 Glucose 115 mg/dL (70-105) H 02/22/18 04:00 AST 11 Units/L (13-39) L 02/21/18 03:27 Serum Total Protein 6.0 g/dL (6.4-8.9) L 02/21/18 03:27 Diabetes panel 02/22/18 Range/Units 04:00 Sodium 138 (136-145) mEq/L Potassium 3.8 (3.5-5.1) mEq/L Chloride 108 H (98-107) mEq/L Carbon Dioxide 24 (23-29) mEq/L BUN 23 H (6-20) mg/dL Creatinine 0.75 (0.60-1.20) mg/dL Glucose 115 H (70-105) mg/dL Calcium 8.8 (8.6-10.3) mg/dL Calcium panel 02/22/18 Range/Units 04:00 Calcium 8.8 (8.6-10.3) mg/dL Pituitary panel 02/22/18 Range/Units 04:00 Sodium 138 (136-145) mEq/L Potassium 3.8 (3.5-5.1) mEq/L Chloride 108 H (98-107) mEq/L Carbon Dioxide 24 (23-29) mEq/L BUN 23 H (6-20) mg/dL Creatinine 0.75 (0.60-1.20) mg/dL Glucose 115 H (70-105) mg/dL Calcium 8.8 (8.6-10.3) mg/dL Adrenal panel 02/22/18 Range/Units 04:00 Sodium 138 (136-145) mEq/L Potassium 3.8 (3.5-5.1) mEq/L Chloride 108 H (98-107) mEq/L Carbon Dioxide 24 (23-29) mEq/L BUN 23 H (6-20) mg/dL Creatinine 0.75 (0.60-1.20) mg/dL Glucose 115 H (70-105) mg/dL Calcium 8.8 (8.6-10.3) mg/dL All other labs normal. - Attending Attestation This patient was seen and examined by me along with the nurse practitioner. I agree with the findings noted in the document above. This is a 42-year-old female with history of angioedema who was readmitted after the patient was seen in the emergency department for hypoxemia. The patient was not having any stridor, tripoding, difficulty tolerating her secretions. On physical exam the patient is breathing easily and is lying flat in bed. There is no stridor. On NPL exam, the patient has a grossly patent airway. Also noted the patient had a previous left upper lip and cheek abscess and this is status post incision and drainage. It does not appear that there is any reaccumulation of the abscess however the patient does still have significant soft tissue swelling. I agree with the plan is outlined above. The patient is to continue antibiotic therapy. At this time I do not believe that the patient is experiencing any angioedema of the laryngeal structures that would compromise the airway.
--- NOTE | 2018-02-21 18:00 | ENT - Procedure Note ---
Date of procedure: 02/21/18 Pre-op diagnosis: angioedema Post-op diagnosis: same Procedure: Nasal laryngoscopy Procedure: Anesthesia: 50:50 mixture of 4% topical lidocaine with 0.05% oxymetazoline. Findings: airway widely patent, no swelling or edema of the nasopharynx, pharynx , or larynx. No pooling of secretions. No masses, polyps, or lesions noted. . Procedure: After informed discussion of the risks, benefits, and alternatives with indications as noted above, a fiberoptic nasopharyngoscopy and laryngoscopy was recommended. Nasal cavities were topically anesthetized and decongested with 4% lidocaine solution mixed with Afrin. After adequate time for decongestion and vasoconstriction flexible scope was easily advanced without difficulty into the right and left nasal cavities as well as into the nasal pharynx. Scope was now advanced distally. Visible oropharynx, including lateral pharyngeal ca and tongue base were examined. Larynx and hypopharynx were examined. The scope was then withdrawn and removed the patient tolerated this well without complications. Tolerance Good. Estimated Blood Loss NIL. Anesthesia: none Was there an assistant principal present: No Estimated blood loss (cc): 0 Specimens collected: NONE Condition: stable
[2018-02-21] MEDS: risperiDONE 1 MG TABLET PO SCH ×2 (22:11→22:45)
[2018-02-21] MEDS ORDERED: Melatonin 3 MG TABLET PO PRN (22:43)
[2018-02-22] MEDS: Acetaminophen 325 MG TABLET PO PRN ×2 (00:27→08:13)
[2018-02-22] MEDS: *HR* Heparin 5,000 UNIT/ML VIAL SQ SCH (06:02)
[2018-02-22 06:44] LABS: Hematocrit 29.4 % (35.3-44.9); Hemoglobin 9.6 g/dL (11.5-15.4); Immature Granulocytes % 0.4 % (0-4); Lymphocytes # 1.7 K/mcL (0.6-4.6); Lymphocytes % 23.5 %; Mean Corpuscular HGB Conc 32.7 g/dL (31.6-35.5); Mean Corpuscular Hemoglobin 28.5 pg (28.0-33.3); Mean Corpuscular Volume 87.2 fL (83.0-100.0); Mean Platelet Volume 9.1 fL (9.4-12.4); Monocytes # 0.6 K/mcL (0.0-1.3); Monocytes % 7.4 %; Neutrophils # 5.1 K/mcL (1.6-8.9); Platelet Count 196 K/mcL (140-400); Red Blood Count 3.37 M/mcL (3.82-4.97); Red Cell Distribution Width 12.2 % (11.5-14.5); Segmented Neutrophils % 68.7 %
[2018-02-22 07:03] LABS: BUN/Creatinine Ratio 31 (6-26); Blood Urea Nitrogen 23 mg/dL (6-20); Calcium 8.8 mg/dL (8.6-10.3); Carbon Dioxide 24 mEq/L (23-29); Chloride 108 mEq/L (98-107); Glucose 115 mg/dL (70-105); Osmolality,Calculated 291 (280-300); Potassium 3.8 mEq/L (3.5-5.1); Sodium 138 mEq/L (136-145); eGFR For Non-African Americans > 60 (> 60)
[2018-02-22 07:16] VITALS: BP 106/61
[2018-02-22] MEDS: Lactobacillus 1 EACH CAP.SPRINK PO SCH (08:12)
[2018-02-22] MEDS ORDERED: lamoTRIgine 25 MG TABLET PO SCH (09:00)
--- NOTE | 2018-02-22 09:18 | Discharge Summary ---
- NOTES TO OUTPATIENT PROVIDER Notes to Outpatient Provider: - Follow-up pneumonia. - Chest x-ray 4 weeks. - Follow-up gastritis. Started on ppi for gastritis that was seen on CTA chest. Date of Encounter: 02/22/18 Time of Encounter: 09:14 - Discharge Diagnosis (1) SOB (shortness of breath) Priority: Primary Status: Acute Assessment and Plan: Secondary to pneumonia She will be discharged on Doxycycline for 7 days. She is to continue Clindamycin as scheduled. (2) Abscess of lip Priority: Secondary Status: Acute (3) Angioedema Priority: Secondary Status: Resolved Assessment and Plan: No angioedema on admission ENT was consulted and laryngoscope verified airway open. Qualifiers: Encounter type: subsequent encounter Qualified Code(s): T78.3XXD - Angioneurotic edema, subsequent encounter (4) Community acquired pneumonia Priority: Secondary Status: Acute Assessment and Plan: Seen on CTA Qualifiers: Laterality: unspecified laterality Qualified Code(s): J18.9 - Pneumonia, unspecified organism Hospital course: Ms. Owen is a 42 year old female past medical history of IVDA, hepatitis C who was discharged earlier today after receiving treatment angioedema status post extubation and incision and drainage of a left upper lip abscess and right nasal furuncle. Patient was discharged on on a 14 day course of Bactrim. Patient feels that she was discharged to soon and states that this evening while lying down for bed, she felt acutely short of breath. She subsequent he presented to [facility] where she was found to have a O2 saturation of 88% on room air. She was put on 2 L with improvement 97%. Chest x-ray and x-ray of the neck were unremarkable and showed no evidence of narrowing of her airway. Symptoms appeared to resolve at [place]. She was given 1 dose of methylprednisolone and transferred back to [place] for observation. She was emperically given Solu Medrol ENT was consulted and laryngoscopy was done that showed airway widely patent. She was weaned off of oxygen within hours, without any issue. A CTA was done to rule out PE, which was negative. However, it did show pneumonia. There is chance it was aspiration pneumonia given she was recently intubated. Therefore she will be discharged on Augmentin for 10 days. She will continue Clindamycin as normally scheduled. She is high risk for C diff, she will be discharged with lactobacillus. - Time Spent with Patient Total time spent providing and/or coordinating discharge services: - Discharge Medications Prescriptions: Doxycycline 100 mg PO BID 10 Days #20 capsule PredniSONE [Deltasone] 40 mg PO DAILY 3 Days #6 tablet Home Medications: Omeprazole [PriLOSEC] 40 mg PO HS 02/14/18 [History] lamoTRIgine [Lamictal] 25 mg PO DAILY 02/14/18 [History] risperiDONE [Risperdal] 1 mg PO HS 02/14/18 [History] Clindamycin [Cleocin] 300 mg PO Q8HR #84 capsule 02/20/18 [Rx] Lactobacillus [Culturelle] 2 each PO DAILY #28 cap.sprink 02/20/18 [Rx] Amoxicillin/Clavulanate [Augmentin] 875 mg PO BIDWM #20 tablet 02/22/18 [Rx] Lactobacillus [Culturelle] 2 each PO DAILY #40 cap.sprink 02/22/18 [Rx] PredniSONE [Deltasone] 40 mg PO DAILY 3 Days #6 tablet 02/22/18 [Rx] Allergies/Adverse Reactions: 3 Allergy/AdvReac Type Severity Reaction Status Date / Time No Known Allergies Allergy Verified 02/21/18 01:36 Date of admission: 02/21/18 01:21 Primary care physician: PCP NONE Consults: 02/21/18 10:26 Consult to ENT [CONS] Routine Consulting Provider: ENT Che Reason for Consult: hypoxia, rule out airway obstruction Call Completed: Yes Discharging clinician: Paulino Wallis - Constitutional Vitals: Temp Pulse Resp BP Pulse Ox 98.0 F 87 18 106/61 96 02/22/18 07:15 02/22/18 08:05 02/22/18 07:15 02/22/18 07:15 02/22/18 08:05 Exam: General: Alert and oriented, no acute distress, pleasant Skin:Normal color, no rash, no lesions. HEENT:EOM, pupils equal, round and reactive. no notable airway obstruction Mouth edematous appears healing, no drainage or bleeding. Cardiovascular:Normal S1 & S2, no rubs, murmurs or gallops. No JVD. Pulse regular. Lungs:Normal breath sounds, no wheezes or crackles, no stridor. Extremities:No deformity, no edema or tenderness, no joint swelling or clubbing. Neurological:Normal cognition and motor skills. Pulses:Carotid and radial pulses normal +2. - Patient Status Disposition: Home, Self-Care Condition: Good Functional capacity at discharge: independent ambulation Overall status at discharge: patient is progressing back to baseline - Discharge Instructions Follow Up With: Anabelle Escobar CNP [Advanced Practice Nurse] - 03/01/18 1:30 pm - Diet and Activity Activity: increase activity as tolerated
--- NOTE | 2018-02-22 10:47 | ENT - Progress Note ---
Date of Encounter: 02/22/18 Time of Encounter: 08:00 - Assessment and Plan (1) Cellulitis, lip Status: Acute Patient seen and examined this a.m. swelling of left upper lip greatly decreased. Prior area of induration largely decreased. No areas of fluctuance palpated. Recommend continuing oral clindamycin or if antibiotic should need to be changed for diagnosis of pneumonia consideration should be given to previous culture sensitivity obtained for MRSA. No indication for further steroid use at this time. Patient was provided resources for [facility] dental resident clinic for discharge. Patient is stable and appropriate for discharge from ENT standpoint. Patient to follow up in ENT office as scheduled in 1-2 weeks. All questions answered. Subjective Patient reports: no new complaints, feels better, pain is less, tolerating liquids well, tolerating a regular diet, afebrile Objective Initial Vital Signs Pulse Ox 96 02/21/18 01:39 - General physical appearance well developed, well nourished, no distress - Eyes PERRL, normal ocular movement - ENT normal pinna, normal nares, normal mucosa, CN 2-12 grossly intact, Other ( swelling of left lip overall decreased in size, area of induration decreased with a <2cm remaining area of induration noted near the left buccal mucosa. No drainage of the left upper lip noted. No other areas of swelling or induration noted. ) - Neck no masses, trachea midline, no lymphadectomy - Respiratory normal expansion, normal respiratory effort - Psychiatric oriented to time, oriented to person, oriented to place - Labs 02/22/18 04:00 02/22/18 04:00 Diabetes panel 02/22/18 Range/Units 04:00 Sodium 138 (136-145) mEq/L Potassium 3.8 (3.5-5.1) mEq/L Chloride 108 H (98-107) mEq/L Carbon Dioxide 24 (23-29) mEq/L BUN 23 H (6-20) mg/dL Creatinine 0.75 (0.60-1.20) mg/dL Glucose 115 H (70-105) mg/dL Calcium 8.8 (8.6-10.3) mg/dL Calcium panel 02/22/18 Range/Units 04:00 Calcium 8.8 (8.6-10.3) mg/dL Pituitary panel 02/22/18 Range/Units 04:00 Sodium 138 (136-145) mEq/L Potassium 3.8 (3.5-5.1) mEq/L Chloride 108 H (98-107) mEq/L Carbon Dioxide 24 (23-29) mEq/L BUN 23 H (6-20) mg/dL Creatinine 0.75 (0.60-1.20) mg/dL Glucose 115 H (70-105) mg/dL Calcium 8.8 (8.6-10.3) mg/dL Adrenal panel 02/22/18 Range/Units 04:00 Sodium 138 (136-145) mEq/L Potassium 3.8 (3.5-5.1) mEq/L Chloride 108 H (98-107) mEq/L Carbon Dioxide 24 (23-29) mEq/L BUN 23 H (6-20) mg/dL Creatinine 0.75 (0.60-1.20) mg/dL Glucose 115 H (70-105) mg/dL Calcium 8.8 (8.6-10.3) mg/dL Consult Discharge Plan - Plan Instructions: Prednisone (By mouth), Amoxicillin/Clavulanate Potassium (By mouth), Probiotic (By mouth), Methicillin Resistant Staphylococcus Aureus (DC), Cellulitis (DC), Pneumonia (DC) Additional Instructions: SOFT DIET/DIET TOLERATED. FINISH COURSE OF ANTIBIOTICS AND PREDNISONE ORDERED. ACTIVITY TOLERATED. PO TYLENOL FOR PAIN. Referrals: Anabelle Escobar CNP [Advanced Practice Nurse] - 03/01/18 1:30 pm Prescriptions: Amoxicillin/Clavulanate [Augmentin] 875 mg PO BIDWM #20 tablet Lactobacillus [Culturelle] 2 each PO DAILY #40 cap.sprink PredniSONE [Deltasone] 40 mg PO DAILY 3 Days #6 tablet
--- NOTE | 2018-02-23 11:36 | Electrocardiograph Report ---
[address] [address] Test Date: 2018-02-21 Pat Name: Alayna Owen Department: 110 Room: 06 Gender: F [employer]all[employer] Laboratory Technician: : 1975 Requested By: Annalee Dunaway Order Number: [id number] Reading MD: Agata Hays Measurements Intervals [place] Rate: 78 P: 21 FL: 133 QRS: 31 QRSD: 86 T: 38 QT: 368 QTc: 401 Interpretive Statements NORMAL SINUS RHYTHM Electronically Signed On 02-23-2018 11:34:31 EDT by Agata Hays
== END 2018-02-22 12:37 | disposition home or self-care (01) ==
LOC: 2NNU
PROVIDERS: ADMIT Internal Medicine; ATTEND Internal Medicine

== ENCOUNTER 2019-03-02 03:00 | Observation (INO) ==
[2019-03-02] MEDS ORDERED: Mag Hydrox/Al Hydrox/Simeth 30 ML UDC PO PRN (04:56)
[2019-03-02] MEDS ORDERED: *HR* LORazepam 1 MG TABLET PO PRN (04:56)
[2019-03-02] MEDS ORDERED: Haloperidol Lactate 5 MG/ML VIAL IM PRN (04:56)
[2019-03-02] MEDS ORDERED: *HR* LORazepam 2 MG/ML VIAL IM PRN (04:56)
[2019-03-02] MEDS ORDERED: traZODone 50 MG TABLET PO PRN (04:56)
[2019-03-02] MEDS ORDERED: MOM Conc 10 ML UD.LIQ PO PRN (04:56)
[2019-03-02] MEDS ORDERED: Acetaminophen 325 MG TABLET PO PRN (04:56)
[2019-03-02] MEDS ORDERED: hydrOXYzine pamoate 25 MG CAPSULE PO PRN (04:56)
[2019-03-02] MEDS ORDERED: FLUoxetine 20 MG CAPSULE PO SCH (09:00)
[2019-03-02 09:09] VITALS: BP 103/70
== END 2019-03-02 14:08 | disposition home or self-care (01) ==
LOC: 1ANU 03:00 → EMEROOARM 03:00 → 1ANU 04:42
PROVIDERS: ADMIT Psychiatry & Neurology Psychiatry; ATTEND Psychiatry & Neurology Psychiatry